=== PATIENT | male | born 1980 | race Caucasian/White ===

== ENCOUNTER 2021-02-17 09:29 | Inpatient (IN) | payer BC, SELFPAY ==
[2021-02-17] VITALS (31 sets, daily range): BP systolic 109–162; BP diastolic 80–116; PULSE 69–117; RESP 18–35; TEMP 36.7–37.2; O2SAT 94–100; BMI 50.0; BMI 48.1; BMI 48.2
--- NOTE | 2021-02-17 09:47 | EKG12_ITS ---
Test Reason : ABD EKG Blood Pressure : / mmHG Vent. Rate : 124 BPM Atrial Rate : 136 BPM P-R Int : 000 ms QRS Dur : 092 ms QT Int : 326 ms P-R-T Axes : 000 052 -14 degrees QTc Int : 468 ms Atrial fibrillation with rapid ventricular response Nonspecific ST abnormality Abnormal QRS-T angle, consider primary T wave abnormality Abnormal ECG Confirmed by BECKI MOSS, CHAKA ([id number]), electronic news gathering editor MARISOL REECE ([id number]) on 02/20/2021 2:52:41 PM Referred By: CHUCKIE Confirmed By:CORBY CONNELL MD
--- NOTE | 2021-02-17 09:49 | ED.VIS.GEN ---
History of Present Illness Chief Complaint: Shortness of Breath Informant: Patient, Family Onset: Month(s) Narrative: Sent in by PCP Dr. Malik, I spoke with him prior to patient arrival. Found to have A. fib with RVR in the office along with CHF clinical concerns. Patient reports chronic cough for 18 months, tobacco history. Nonproductive. Last 4 months noted orthopnea, last 2 days increased leg swelling. He denies feeling palpitations racing heart or any irregular heartbeat. Denies any diagnosis of COPD or asthma. He does snore at night for years per significant other has not been diagnosed with sleep apnea. Denies any current medications. No stroke history. Severe allergy to aspirin causing airway compromise. States he has been Covid tested couple times in the past have been negative, no vaccination started. Prior similar symptoms: No Past Medical History - Allergies and Home Meds Allergies/Adverse Reactions: Allergies aspirin Allergy (Verified 02/17/21 09:30) Shortness of breath Penicillins Allergy (Verified 02/17/21 09:30) Anaphylaxis Sulfa (Sulfonamide Antibiotics) Allergy (Verified 02/17/21 09:30) PT UNSURE OF REACTION Primary Care Physician: Ryan Sheridan MD [Primary Care Provider] - Past Medical History: - - No diagnosed past medical history Review of Systems General: Denies: Chills, Fever, Sweats Eyes: Denies: Visual changes - bilaterally, Diplopia ENT: Denies: Rhinorrhea, Sore throat Cardiovascular: Denies: Chest pain, Palpitations Respiratory: Reports: Dyspnea, Cough, Orthopnea. Denies: Dyspnea on exertion Gastrointestinal: Denies: Abdominal pain, Nausea, Vomiting, Diarrhea, Melena, Hematochezia Genitourinary: Denies: Dysuria, Hematuria, Frequency Musculoskeletal: Denies: Back pain, Extremity Pain Skin: Denies: Rash, Wounds Neurological: Denies: Headache, Weakness, Numbness Physical Exam Vital Signs/Narrative: Vital Signs Temp Pulse Resp BP Pulse Ox 02/17/21 09:31 98.9 F 70 18 162/116 H 97 Inital Vital Signs reviewed: Yes General: Well nourished, Well developed, Obese, No Acute Distress Head: Normocephalic, Atraumatic Eyes: Perrl, EOMI ENT: Moist mucous membranes, No rhinorrhea Neck: Supple, Nontender Cardiovascular: No murmurs, Irregular, Tachycardia Respiratory: No distress, Chest nontender, Diminished Abdomen: Soft, Nontender, Nondistended, Normal bowel sounds Back: Nontender, Normal Inspection Extremities: Nontender, Edema Skin: Normal color, No rash Neurological: Alert, Oriented x3, Cranial nerves II-XII grossly intact, Normal Strength, Normal Sensation Psychological: Normal affect, Normal Mood Diagnostic/Tx/Re-eval Chest X-Ray - ED: 1 View, Read by ED Physician, Read by Radiologist, No Acute Disease Clinical Impression(s) from Imaging Studies Chest X-Ray 02/17/21 10:45 IMPRESSION: Normal x-ray examination of the chest. Electronically Signed: Candido Kwok MD at 11:07 EDT , Service support , Abnormal Lab Results 02/17/21 02/17/21 02/17/21 10:15 10:15 10:15 WBC 12.0 H RBC 6.02 Hgb 15.5 Hct 49.1 MCV 81.6 MCH 25.7 L MCHC 31.6 L RDW Std Deviation 46.0 H RDW Coeff of Cecilia 15.7 H Plt Count 268 MPV 9.8 Immature Gran % (Auto) 0.300 Neut % (Auto) 80.1 H Lymph % (Auto) 11.5 L [place] % (Auto) 7.0 Eos % (Auto) 0.7 Baso % (Auto) 0.4 Absolute Neuts (auto) 9.6 H Absolute Lymphs (auto) 1.38 Nucleated RBC % 0 PT 14.0 INR 1.1 APTT 28.4 Sodium 138 Potassium 3.9 Chloride 106 Carbon Dioxide 27.0 Anion Gap 5 BUN 17 Creatinine 1.11 Estim Creat Clear Calc 90.43 Est GFR (MDRD) Af Amer 93 Est GFR (MDRD) Non-Af 77 BUN/Creatinine Ratio 15.3 Glucose 94 Calcium 9.0 Troponin I 0.018 B-Natriuretic Peptide 02/17/21 10:15 WBC RBC Hgb Hct MCV MCH MCHC RDW Std Deviation RDW Coeff of Cecilia Plt Count MPV Immature Gran % (Auto) Neut % (Auto) Lymph % (Auto) [place] % (Auto) Eos % (Auto) Baso % (Auto) Absolute Neuts (auto) Absolute Lymphs (auto) Nucleated RBC % PT INR APTT Sodium Potassium Chloride Carbon Dioxide Anion Gap BUN Creatinine Estim Creat Clear Calc Est GFR (MDRD) Af Amer Est GFR (MDRD) Non-Af BUN/Creatinine Ratio Glucose Calcium Troponin I B-Natriuretic Peptide 245.6 H - EKG Initial EKG Interpretation: Atrial Fibrillation - A. fib with RVR rate of 124, no ST changes, T wave inversions on 3 and aVL. - Medical Decision Making Patient EKG A. fib with RVR systolic blood pressure 160s. Pulse ox low 90s to mid 90s. Given Lopressor IV x3 heart rate down to the 90s to 110s fluctuating. He states respiratory symptoms with no significant improvement. Chest x-ray 1 view reviewed by myself and read by radiology with no acute findings. BNP at 250. Clinical signs and concerns for CHF. Is given 20 of IV Lasix. Given 50 oral metoprolol to sustain his heart rate. With respiratory symptoms Covid testing obtained and negative. CBC BMP normal. Troponin in the negative range. Patient denies feeling abnormal irregular heartbeat. Suspect underlying sleep apnea history, patient with a [id number] score of 1. Patient with severe allergy to aspirin. I discussed with hospitalist Dr. Quinones for admission and inpatient management. ED Disposition - Plan for ED Patient: Disposition: Acute Care Hospital [facility] Diagnosis: Atrial fibrillation with RVR, CHF (congestive heart failure) Referrals: Ryan Sheridan MD [Primary Care Provider] -
[2021-02-17] MEDS: Metoprolol Tartrate 5 MG/5 ML Vial IV ×3 (10:16→11:00)
[2021-02-17 10:26] LABS: Absolute Lymphocyte Count 1.38 X10^3/uL (0.83-4.51); Absolute Neutrophil Count 9.6 X10^3/uL (2.0-7.7); Basophil# 0.05 X10^3/uL; Basophil% 0.4 % (0-1); Eosinophil# 0.08 X10^3/uL; Eosinophils% 0.7 % (0-5); Hematocrit 49.1 % (40-54); Hemoglobin 15.5 g/dL (13.0-16.5); Lymphocyte # 1.38 X10^3/ul (4.0); Lymphocyte % 11.5 % (19-41); Mean Corp Hgb Conc 31.6 g/dL (32-36); Mean Corpuscular Hgb 25.7 pg (27.0-32.0); Mean Corpuscular Volume 81.6 fL (80-94); Mean Platelet Vol. 9.8 fl (6.2-12.0); Monocyte# 0.84 X10^3/uL; NRBC Flagged by Analyzer 0 % (0-5); Neutrophil % 80.1 % (47-70); Platelet Count 268 K/mm3 (150-450); RBC Distribution Width CV 15.7 % (11.6-14.6); Red Blood Count 6.02 M/mm3 (4.6-6.2)
[2021-02-17 10:36] LABS: International Normalized Ratio 1.1
[2021-02-17 10:37] LABS: Partial Thromboplast Time 28.4 Seconds (24.1-36.2)
--- NOTE | 2021-02-17 10:45 | RAD_ITS ---
STUDY: X-RAY CHEST REASON FOR EXAM: Male, 40 years old. Sob with exertion. Abnormal EKG today. TECHNIQUE: 2 AP portable views COMPARISON: None. FINDINGS: EKG leads overlie the chest The lungs are clear and expanded. There is no demonstrated pleural abnormality. Normal size heart. Normal mediastinum and pj. Normal visualized pulmonary arteries. Normal visualized aortic arch and descending thoracic aorta. Normal visualized thoracic spine. Normal visualized ribs, clavicles, and shoulders. There is no demonstrated abnormality of the visualized soft tissue structures of the upper abdomen. RAD/Chest 1 View (Portable) IMPRESSION: Normal x-ray examination of the chest. Electronically Signed: Candido Kwok MD at 11:07 EDT , Service support ,
[2021-02-17 10:48] LABS: Anion Gap 5 (5-15); BUN 17 mg/dL (7-18); BUN/Creat Ratio 15.3 RATIO (10-20); Chloride 106 mmol/L (98-107); Creatinine, Serum 1.11 mg/dL (0.70-1.30); EST Glomerular Filtration Rate 77 mL/min (>60); Est Glom Filt Rate - Afr Amer 93 mL/min (>60); Estimated Creatinine Clearance 90.43 ml/min; Glucose 94 mg/dL (74-106); Potassium 3.9 mmol/L (3.5-5.1); Sodium Level 138 mmol/L (136-145)
[2021-02-17 10:49] LABS: BNP,B-Type NATRIURETIC PEPTIDE 245.6 pg/mL (0-100)
[2021-02-17] MEDS: Metoprolol Tartrate 25 MG Tablet 50 MG PO (11:19)
[2021-02-17] MEDS: Furosemide 40 MG/4 ML Vial 20 MG IV (11:19)
--- NOTE | 2021-02-17 11:24 | HP.PCM_ITS ---
History of Present Illness Date of Admission: 02/17/21 Chief Complaint: shortness of breath The patient is a 40 year old M h no significant PMH. He was admitted from his PCP;s office with a complaint of afib with RVR and cncerns for heart failure. He started having leg swelling over the last 2 days, and had also been having difficulty sleeping flat for the past few months. He had also had a chronic cough for the last 18 months. He has allergies to aspirin. His heart rate was in the 120s, so he went to see his PCP today and was sent in to the ED. He hasnt had such symptoms in the past. He has never been diagnosed with heart failure or A. fib. Review of systems otherwise negative. Vitals in the ED showed pulse rate of 104 with respiratory rate of 25 and blood pressure of 143/110. Temperature was 98.2 Fahrenheit. Chemistry was unremarkable with initial troponin of 0.018 and BNP of 245.6. CBC showed WBC of 12 and hemoglobin of 15.5 was otherwise unremarkable. Chest x-ray showed no acute cardiopulmonary process and EKG showed A. fib with RVR. He has been admitted to be managed for new ons et A. fib with RVR and probable heart failure. Past Medical History Past Medical History (Chronic Problems): Chronic Problems HTN (hypertension) (Chronic) Allergies aspirin Allergy (Verified 02/17/21 09:30) Shortness of breath Penicillins Allergy (Verified 02/17/21 09:30) Anaphylaxis Sulfa (Sulfonamide Antibiotics) Allergy (Verified 02/17/21 09:30) PT UNSURE OF REACTION Smoking Status: Current some day smoker Tobacco Use: Cigarettes VTE Information - Inpt Only VTE Present on Admission: No VTE Pharm Prophylaxis ordered?: Yes Patient Problems: Active and Suspected Problems Atrial fibrillation with RVR (Acute) CHF (congestive heart failure) (Acute) - Physical Exam Vitals/I&O's: Vital Signs Temp Pulse Resp BP Pulse Ox 98.9 F 70 18 162/116 H 97 02/17/21 09:31 02/17/21 09:31 02/17/21 09:31 02/17/21 09:31 02/17/21 09:31 Oxygen Delivery Method Room Air Weight: 348 lb 12.34 oz Body Mass Index (BMI) 50.0 General: Alert, Oriented x3, Cooperative, No apparent distress, - - Super morbid obesity HEENT: Atraumatic, PERRLA, EOMI, Normocephalic Oral: Dry Mucosa Neck: Supple, No JVD, Negative Carotid Bruits Lungs: Diminished - diminished breath sounds bibasally, no wheezes or crackles. Cardiovascular: Irregular Rate - afib with RVR Abdomen: Bowel Sounds Present, Soft, Non Tender, Obese Extremities: No edema, Capillary Refill Less than 3 Seconds Skin: No rashes, No breakdown Musculoskeletal: No Tenderness to Palpation of Joints or Extremities Lymphatic: No Cervical, Supraclavicular, or Inguinal Adenopathy Neurological: Cranial nerves II-XII grossly intact, Neuro grossly intact, Motor Exam 5/5 strength throughout Psych/Mental Status: Normal Affect, Appropriate, Alert and oriented to time, place, person, mood and affect Microbiology Past 72 Hours 02/17/21 10:13 Mucosa - Nose SARS-CoV-2 Antigen (Rapid) - Final Laboratory Results 02/17/21 10:15: WBC 12.0 H, RBC 6.02, Hgb 15.5, Hct 49.1, MCV 81.6, MCH 25.7 L, MCHC 31.6 L, RDW Std Deviation 46.0 H, RDW Coeff of Cecilia 15.7 H, Plt Count 268, MPV 9.8, Immature Gran % (Auto) 0.300, Neut % (Auto) 80.1 H, Lymph % (Auto) 11.5 L, [place] % (Auto) 7.0, Eos % (Auto) 0.7, Baso % (Auto) 0.4, Absolute Neuts (auto) 9.6 H, Absolute Lymphs (auto) 1.38, Nucleated RBC % 0 02/17/21 10:15: PT 14.0, INR 1.1, APTT 28.4 02/17/21 10:15: Sodium 138, Potassium 3.9, Chloride 106, Carbon Dioxide 27.0, Anion Gap 5, BUN 17, Creatinine 1.11, Estim Creat Clear Calc 90.43, Est GFR (MDRD) Af Amer 93, Est GFR (MDRD) Non-Af 77, BUN/Creatinine Ratio 15.3, Glucose 94, Calcium 9.0, Troponin I 0.018 02/17/21 10:15: B-Natriuretic Peptide 245.6 H Diagnostic Data Chest X-Ray 02/17/21 10:45 IMPRESSION: Normal x-ray examination of the chest. Electronically Signed: Candido Kwok MD at 11:07 EDT , Service support , Assessment/Plan All Active Problems Atrial fibrillation with RVR (Acute) CHF (congestive heart failure) (Acute) 40 y/o admitted with a complaint of afib with RVR and shortness of breath #Afib with RVR * Have any history of A. fib with RVR. I do suspect that this might be due to ELLA as he has a history of snoring and sees she has apneic periods at night. * Heart rate was low 130s at time of review. Start Cardizem drip after giving Cardizem bolus * 2D echo ordered. Will check TSH. Consult cardiology. * Start on therapeutic Lovenox. * #Heart Failure of unknown EF * BNP was 245.6 which may be falsely low on account of his significant obesity. * Will start patient on IV Lasix 40 mg twice daily. Monitor intake and output. * 2D echo ordered. * #Probable obstructive sleep apnea * Patient has a history of snoring at night and apneic episodes. This is likely contributing to his A. fib with RVR. * Will get pulmonology to review patient before discharge so he can be followed up on outpatient basis for sleep test to unable diagnosis of sleep apnea. * DVT prophylaxis: Not indicated as he is on therapeutic Lovenox CODE STATUS: Full code * Patient counseled extensively about different types of CODE STATUS including full code, DNR CCA and DNR CCA. Patient elects to be full code. * Total fdir-iv-qder time 17 minutes. Inpatient E&M: 54699 Init Hosp L3 Procedures: 18833 Advncd Care Plan 30 Min
--- NOTE | 2021-02-17 12:18 | ECHOCS_ITS ---
Reason For Study: New Afib Procedure This was a 2D Doppler, Color Flow transthoracic echocardiogram. The study was technically difficult. Contrast injection was performed. Patient was unable to lay on left side due to a large increase of SOB. Exam performed portable in patient room. Left Ventricle Moderately dilated left ventricle. Moderate concentric left ventricular hypertrophy. Severe global left ventricular systolic dysfunction. The estimated ejection fraction is 20 %. Unable to assess diastolic dysfunction. Right Ventricle Based upon the 2D echocardiographic images obtained there is grossly normal right ventricular size and systolic function. Atria The left atrium is moderately enlarged. The right atrium is not well visualized. No doppler evidence for ASD. Mitral Valve There is no mitral annular calcification. Mild papillary muscle dysfunction of the mitral valve. Mild (1+) eccentric mitral valve insufficiency. Tricuspid Valve The tricuspid valve is not well visualized. Mild tricuspid valve insufficiency. Right ventricular systolic pressure estimated to be 36 mmHg. Aortic Valve Trisinus/trileaflet aortic valve. Normal aortic valve. Pulmonic Valve The pulmonic valve is not well visualized. Trivial pulmonic valve insufficiency. Great Vessels The aortic root is not well visualized. Pericardium/Pleural No pericardial effusion. Medication Diluted definity 4ml given slow IV push to enhance endocardial definition. MMode/2D Measurements & Calculations LVIDd: 6.1 cm IVSd: 1.7 cm LA dimension: 5.7 cm LVIDs: 5.3 cm LVPWd: 1.4 cm FS: 14.2 % LAV(MOD-bp): 96.0 ml LA A4 area: 30.2 cm2 LAV(MOD-bp) Indexed: 36.5 ml/m2 LAV(MOD-sp2): 85.1 ml LAV(MOD-sp4): 99.8 ml Doppler Measurements & Calculations MV E max farhan: 98.9 cm/sec Ao V2 max: 97.0 cm/sec LV V1 max: 74.2 cm/sec Ao max P.9 mmHg LV V1 max P.4 mmHg PA V2 max: 62.7 cm/sec TR max farhan: 285.1 cm/sec TR max P.5 mmHg ECHO/Echo Complete W/ Contrast Interpretation Summary The study was technically difficult. Contrast injection was performed. Moderately dilated left ventricle. Severe global left ventricular systolic dysfunction. The estimated ejection fraction is 20 %. Moderate concentric left ventricular hypertrophy. The left atrium is moderately enlarged. Mild papillary muscle dysfunction of the mitral valve. Mild (1+) eccentric mitral valve insufficiency. Mild tricuspid valve insufficiency. Trivial pulmonic valve insufficiency. Right ventricular systolic pressure estimated to be 36 mmHg. Unable to assess diastolic dysfunction. Ordering Physician: Bella Quinones Referring Physician: Ryan Sheridan Performed By: Leroy Shabazz RCS
[2021-02-17 13:13] LABS: Thyroid Stim Hormone (TSH) 2.13 uIU/mL (0.358-3.74)
--- NOTE | 2021-02-17 13:13 | NURSING ---
Report given to Keren NOLEN who is taking over care of pt at this time.
[2021-02-17] MEDS: 0.9% Saline Lock 10 ML Syringe IV ×2 (13:19→17:08)
[2021-02-17] MEDS: dilTIAZem 25 MG/5 ML Vial IV BOLUS (13:19)
--- NOTE | 2021-02-17 14:42 | PCM.CONS.C ---
Problem List (1) Atrial fibrillation with RVR Status: Acute (2) CHF (congestive heart failure) Status: Acute (3) HTN (hypertension) Status: Chronic Reason for Consult Date of Consultation: 02/17/21 History of Present Illness: The patient is a 40 year [id number] white male who claims to have no past medical history and has been on no prescription medications who presents for evaluation of atrial fibrillation, CHF (unspecified), and hypertension. According to the patient and his spouse he has had a cough for approximately the last 18 months. The patient spouse states that he has been tested for COVID-19 three times during this time all of which have been negative. He has been progressively short of breath and dyspneic initially with activity but more recently with rest as well. He has also recently developed symptoms compatible with orthopnea/PND. Over approximately the last 3 days he has developed bilateral lower extremity calf/ankle/pedal edema. He also notes as his job has changed over time that he has gained approximately 50 pounds of weight. He has denied any ongoing chest discomfort and he has not sensed any palpitations or rapid heart rates nor is he had any near-syncope or syncope. His states that she believes he has ELLA. Based upon his ongoing symptoms she encouraged him to present to his primary care physician's office for further evaluation. Of note, the patient's spouse states that the patient has not been evaluated by physician in approximately 9 years. He was evaluated and was subsequently told to go directly to the emergency department for further evaluation and care. In the emergency department he was evaluated and noted to have atrial fibrillation and her findings concerning for CHF. He was treated with IV diltiazem to assist with his rate control and also treated with IV diuretics. He was placed in the PCU for further evaluation and care. [] Past Medical History Allergies/Adverse Reactions: Allergies aspirin Allergy (Verified 02/17/21 09:30) Shortness of breath Penicillins Allergy (Verified 02/17/21 09:30) Anaphylaxis Sulfa (Sulfonamide Antibiotics) Allergy (Verified 02/17/21 09:30) PT UNSURE OF REACTION Past Medical History (Chronic Problems): Chronic Problems HTN (hypertension) (Chronic) Lives: Spouse/ Significant Other Smoking Status: Current some day smoker Tobacco Use: Cigarettes Alcohol: None Drugs: None Review of Systems - Review of Systems General: Reports: Fatigue. Denies: Fever, Night Sweats Cardiovascular: Reports: Shortness of Breath, Shortness of Breath at Rest, Shortness of Breath with Exertion, Orthopnea, PND, Peripheral Edema. Denies: Chest Discomfort, Palpitations, Lightheadedness, Dizziness, Near Syncope, Syncope Respiratory: Reports: Cough, Shortness of Breath. Denies: Sputum Production, Hemoptysis Gastrointestinal: Denies: Hematemesis, Hematochezia, Melena Genitourinary: Denies: Dysuria, Hematuria Skin: Denies: Rash Subjectve: This is a 40-year-old white male who appears to be resting comfortably at the moment in no acute distress. Objective: Vital Signs Temp Pulse Resp BP Pulse Ox 98.1 F 84 35 H 127/104 H 97 02/17/21 13:00 02/17/21 14:15 02/17/21 14:15 02/17/21 14:15 02/17/21 14:15 Oxygen Delivery Method Room Air Weight: 345 lb 3.902 oz Body Mass Index (BMI) 48.1 Intake and Output for Last 24 Hours 02/15/21 02/16/21 02/17/21 23:59 23:59 23:59 Intake Total 4.08 / 4.08 Balance 4.08 / 4.08 General: Awake, Alert, Oriented x 3, Cooperative, No Acute Distress, Obese HEENT: Atraumatic, Normocephalic, PERRL, EOMI, Sclera Non Icteric Neck: Supple, Good ROM, No JVD Lungs: Diminished Buck Bases Cardiovascular: Irregular Rhythm, Normal S1, Normal S2 Vascular: No Carotid Bruits Abdomen: Bowel Sounds Present, Soft, Non Tender, Obese Extremities: Moderate RLE Edema, Moderate LLE Edema Neurological: No Focal Motor or Sensory Deficit Psych/Mental Status: Appropriate 02/17/21 10:15: WBC 12.0 H, RBC 6.02, Hgb 15.5, Hct 49.1, MCV 81.6, MCH 25.7 L, MCHC 31.6 L, Plt Count 268, MPV 9.8, Immature Gran % (Auto) 0.300, Neut % (Auto) 80.1 H, Lymph % (Auto) 11.5 L, [place] % (Auto) 7.0, Eos % (Auto) 0.7, Baso % (Auto) 0.4, Absolute Neuts (auto) 9.6 H, Nucleated RBC % 0 02/17/21 10:15: PT 14.0, INR 1.1, APTT 28.4 02/17/21 10:15: Sodium 138, Potassium 3.9, Chloride 106, Carbon Dioxide 27.0, Anion Gap 5, BUN 17, Creatinine 1.11, Est GFR (MDRD) Af Amer 93, Est GFR (MDRD) Non-Af 77, BUN/Creatinine Ratio 15.3, Glucose 94, Calcium 9.0, Troponin I 0.018 02/17/21 10:15: B-Natriuretic Peptide 245.6 H 02/17/21 13:00: Troponin I 0.015 Rhythm: Atrial fibrillation EKG: Atrial fibrillation; poor R wave progression; nonspecific ST/T wave abnormality ECHO: Pending CXR: Portable: Preliminary evaluation: Question increased pulmonary vascularity; question increased cardiac silhouette size. Please see official report Assessment/Plan 1. Atrial fibrillation The patient presents with atrial fibrillation. The duration is uncertain. The etiology is uncertain at this time. He has been treated with rate control therapy. He is being placed on anticoagulant therapy. He is undergoing additional cardiovascular evaluation with cardiac enzymes and ECG. An echocardiogram is pending. 2. CHF-unspecified He does have symptoms and objective findings concerning for CHF. It is unclear at this time whether this would be systolic or diastolic/used ejection fraction versus preserved ejection fraction in etiology. An echocardiogram is pending to assist in the evaluation of the patient. In the meantime the patient will need to continue to be monitored. He is continuing medical therapy with IV diuretics. Hopefully his medical therapy will assist in stabilizing the patient as he states he cannot be supine at this time and breathe comfortably for any length of time. Thus he is remained somewhat more upright. 3. Hypertension The patient's blood pressure is elevated. He appears to be unaware of any diagnosis of hypertension. It is unclear whether this would be a contributing factor to his other symptoms and objective findings versus being secondary to such. At the moment he will need to continue medical management. Overall, at the present time, he will need to continue to be monitored, continue with his noninvasive evaluation, and continue with medical therapy. Depending upon his clinical course he may need further cardiac versus noncardiac evaluation. Comment: The patient's case was discussed and reviewed with the patient and his spouse. This note was generated using a voice recognition system and there may be incorrect words, spelling or punctuation that were not noted when reviewing the office note prior to saving.
--- NOTE | 2021-02-17 15:10 | CASEMGMT ---
According to [place] website, the following are in-network tertiary facilities: [facility], [place], [facility], [facility], [facility], [facility], [facility], and . Onel NOLEN CM
[2021-02-17 15:40] LABS: AST(SGOT) 22 U/L (15-37); Alanine Aminotransfer ALT/SGPT 38 U/L (16-61); Alkaline Phosphatase 109 U/L (45-117); Bilirubin, Direct 0.45 mg/dL (0.00-0.30); Globulin 3.6 g/dL (2.2-4.2); Protein, Total 7.6 g/dL (6.4-8.2)
[2021-02-17] MEDS: Furosemide 40 MG/4 ML Vial IV (17:08)
[2021-02-17] MEDS: Lisinopril 10 MG Tablet PO (21:13)
[2021-02-17] MEDS: Enoxaparin 80 MG/0.8 ML Syringe 160 MG SC (21:14)
[2021-02-18] VITALS (32 sets, daily range): BP systolic 103–155; BP diastolic 72–131; PULSE 78–104; RESP 18–36; TEMP 36.1–36.7; O2SAT 92–100
[2021-02-18 05:47] LABS: Absolute Lymphocyte Count 1.43 X10^3/uL (0.83-4.51); Absolute Neutrophil Count 8.9 X10^3/uL (2.0-7.7); Basophil# 0.06 X10^3/uL; Basophil% 0.5 % (0-1); Eosinophils% 0.9 % (0-5); Hematocrit 48.2 % (40-54); Hemoglobin 14.9 g/dL (13.0-16.5); Lymphocyte # 1.43 X10^3/ul (4.0); Lymphocyte % 12.6 % (19-41); Mean Corp Hgb Conc 30.9 g/dL (32-36); Mean Corpuscular Hgb 25.6 pg (27.0-32.0); Mean Corpuscular Volume 82.8 fL (80-94); Monocyte# 0.87 X10^3/uL; Monocyte% 7.6 % (0-10); NRBC Flagged by Analyzer 0 % (0-5); Neutrophil # 8.89 X10^3/uL (2.7-7.7); Platelet Count 261 K/mm3 (150-450); RBC Distribution Width CV 16.1 % (11.6-14.6); Red Blood Count 5.82 M/mm3 (4.6-6.2); White Blood Count 11.4 K/mm3 (4.4-11.0)
[2021-02-18 06:09] LABS: Anion Gap 5 (5-15); BUN 14 mg/dL (7-18); BUN/Creat Ratio 13.5 RATIO (10-20); Chloride 105 mmol/L (98-107); Cholesterol 148 mg/dL (200); Creatinine, Serum 1.04 mg/dL (0.70-1.30); EST Glomerular Filtration Rate 83 mL/min (>60); Est Glom Filt Rate - Afr Amer 101 mL/min (>60); Estimated Creatinine Clearance 99.56 ml/min; Glucose 90 mg/dL (74-106); High Density Lipoprotein 27 mg/dL; Potassium 3.9 mmol/L (3.5-5.1); Sodium Level 140 mmol/L (136-145); Triglycerides 99 mg/dL; Very Low Density Lipoprotein 20 mg/dL (5-40)
[2021-02-18] MEDS: Lisinopril 10 MG Tablet PO ×2 (09:34→21:50)
[2021-02-18] MEDS: Enoxaparin 80 MG/0.8 ML Syringe 160 MG SC ×2 (09:34→21:52)
[2021-02-18] MEDS: Furosemide 40 MG/4 ML Vial IV ×2 (09:35→17:35)
[2021-02-18] MEDS: 0.9% Saline Lock 10 ML Syringe IV ×2 (09:35→17:35)
--- NOTE | 2021-02-18 11:05 | PN_ITS ---
Patient Problems: Active and Suspected Problems Atrial fibrillation with RVR (Acute) CHF (congestive heart failure) (Acute) Subjective: Patient seen and examined. He is feeling much better today. He denies any chest pain or palpitations or dizziness, nausea vomiting. He remains in A. fib and remains on a Cardizem drip. Billing Customer Service Representative on board. He still does remain tachypneic. He is on 2 L of oxygen. Vitals/I&O's: Vital Signs Temp Pulse Resp BP Pulse Ox 97 F L 87 26 H 155/85 H 94 02/18/21 08:00 02/18/21 10:00 02/18/21 10:00 02/18/21 10:00 02/18/21 10:00 Oxygen Flow Rate (L/min) 2 Oxygen Delivery Method Room Air Weight: 337 lb 4.916 oz Body Mass Index (BMI) 48.1 Intake and Output for Last 24 Hours 02/16/21 02/17/21 02/18/21 23:59 23:59 23:59 Intake Total 525.58 / 525.58 197.25 / 197.25 Output Total 4300 / 4300 600 / 600 Balance -3774.42 / -3774.42 -402.75 / -402.75 General: Alert, Oriented x3, Cooperative, No apparent distress, - - Super morbid obesity HEENT: Atraumatic, PERRLA, EOMI, Normocephalic Oral: Dry Mucosa Neck: Supple, No JVD, Negative Carotid Bruits Lungs: Diminished - diminished breath sounds bibasally, no wheezes or crackles. Cardiovascular: Irregular Rate - afib, rate controlled. Abdomen: Bowel Sounds Present, Soft, Non Tender, Obese Extremities: No edema, Capillary Refill Less than 3 Seconds Skin: No rashes, No breakdown Musculoskeletal: No Tenderness to Palpation of Joints or Extremities Lymphatic: No Cervical, Supraclavicular, or Inguinal Adenopathy Neurological: Cranial nerves II-XII grossly intact, Neuro grossly intact, Motor Exam 5/5 strength throughout Psych/Mental Status: Normal Affect, Appropriate, Alert and oriented to time, place, person, mood and affect Microbiology Past 72 Hours 02/17/21 10:13 Mucosa - Nose SARS-CoV-2 Antigen (Rapid) - Final Laboratory Results 02/17/21 10:15: TSH 2.13 02/17/21 13:00: Troponin I 0.015 02/17/21 13:00: Total Bilirubin 1.40 H, Direct Bilirubin 0.45 H, AST 22, ALT 38, Alkaline Phosphatase 109, Total Protein 7.6, Albumin 4.0, Globulin 3.6 02/17/21 16:20: Troponin I 0.015 02/18/21 05:24: WBC 11.4 H, RBC 5.82, Hgb 14.9, Hct 48.2, MCV 82.8, MCH 25.6 L, MCHC 30.9 L, RDW Std Deviation 48.0 H, RDW Coeff of Cecilia 16.1 H, Plt Count 261, MPV 10.0, Immature Gran % (Auto) 0.400, Neut % (Auto) 78.0 H, Lymph % (Auto) 12.6 L, [place] % (Auto) 7.6, Eos % (Auto) 0.9, Baso % (Auto) 0.5, Absolute Neuts (auto) 8.9 H, Absolute Lymphs (auto) 1.43, Nucleated RBC % 0 02/18/21 05:24: Sodium 140, Potassium 3.9, Chloride 105, Carbon Dioxide 30.0, Anion Gap 5, BUN 14, Creatinine 1.04, Estim Creat Clear Calc 99.56, Est GFR (MDRD) Af Amer 101, Est GFR (MDRD) Non-Af 83, BUN/Creatinine Ratio 13.5, Glucose 90, Calcium 9.0, Triglycerides 99, Cholesterol 148, LDL Cholesterol 101, VLDL Cholesterol 20, HDL Cholesterol 27 L Current Medications Acetaminophen (Acetaminophen 325 Mg Tablet) 650 mg PO Q6H PRN PRN PRN Reason: Pain Score 1-3 /Temp>100.7 Enoxaparin Sodium (Enoxaparin 80 Mg/0.8 Ml Syringe) 160 mg SC Q12 [facility] Last Admin: 02/18/21 09:34 Dose: 160 mg Documented by: Furosemide (Furosemide 40 Mg/4 Ml Vial) 40 mg IV BID@1000,1800 STEPHANE Last Admin: 02/18/21 09:35 Dose: 40 mg Documented by: Diltiazem HCl 125 mg/ Dextrose 125 mls @ 5 mls/hr IV .Q25H STEPHANE; Protocol Last Titration: 02/18/21 10:00 Dose: 10 mg/hr, 10 mls/hr Documented by: Sodium Chloride () 250 mls @ 15 mls/hr IV .[id number] PRN PRN Reason: Saline Flush Sodium Chloride () 250 mls @ 15 mls/hr IV .[id number] PRN PRN Reason: Additional IVPB Infusion Lisinopril (Lisinopril 10 Mg Tablet) 10 mg PO BID STEPHANE Last Admin: 02/18/21 09:34 Dose: 10 mg Documented by: Nitroglycerin (Nitroglycerin (Inpatient Use) 0.4 Mg Tab.Subl) 0.4 mg SL Q5M PRN PRN Reason: CARDIAC/CHEST PAIN Ondansetron HCl (Ondansetron 4 Mg/2 Ml Vial) 4 mg IV Q8H PRN PRN PRN Reason: NAUSEA/VOMITING Sodium Chloride (0.9% Saline Lock 10 Ml Syringe) 10 - 40 ml IV UD PRN PRN Reason: SALINE FLUSH Last Admin: 02/18/21 09:35 Dose: 10 ml Documented by: STROKE Vital Signs/Narrative: Vital Signs Temp Pulse Resp BP Pulse Ox 02/18/21 10:00 87 26 H 155/85 H 94 02/18/21 09:00 88 28 H 136/90 H 98 02/18/21 08:00 97 F L 89 23 H 137/110 H 98 02/18/21 07:12 100 97 Medical Necessity - Tobacco Use Smoking Status: Current some day smoker Tobacco Use: Cigarettes Assessment/Plan All Active Problems Atrial fibrillation with RVR (Acute) CHF (congestive heart failure) (Acute) 40 y/o admitted with a complaint of afib with RVR and shortness of breath #Afib with RVR * remains on cardizem drip * still in afib, though rate controlled on cardizem drip * to titrate cardizem drip off as tolerated * TSh was WNL * 2D echo showsEF of 20%, with moderately dilated LV, and moderate concentric left ventricular hypertrophy with moderately enlarged left atrium and RVSP estimated to be 36 mmHg. Unable to assess diastolic dysfunction. * Cardiology on board. On therapeutic Lovenox. * Await further cardiology recommendations. * * #Acute HFrEF * echo findings as above. * on IV lasix 40mg bid * monitor intake and output * fluid restriction to 1500cc daily * #Probable obstructive sleep apnea * Patient has a history of snoring at night and apneic episodes. This is likely contributing to his A. fib with RVR. * consult pulmonology so he can be followed up soon on outpatient basis. * * * DVT prophylaxis: Not indicated as he is on therapeutic Lovenox CODE STATUS: Full code * Inpatient E&M: 88524 Subs Hosp L3
--- NOTE | 2021-02-18 11:16 | CASEMGMT ---
CALLUM NEIL assessment: Face to Face with patient for initial transition planning/care coordination assessment. RN JOLYNN introduced self and role at [facility], pt voices understanding and consents to assessment. Pt is sitting up in bed in no distress. Pt is A/Ox4 and answers all questions appropriately. Pt's is at bedside during assessment. Care providers, pharmacy, and demographics verified. Presentation: Pt w/ progressive SOB worse w/ exertion x couple weeks. Sent by MD for abnormal EKG Admitting dx: Afib RVR PCP: Fatimah Specialists: Pt states no current specialists [facility]erred [facility]: [facility] Insurance: [place] Prescription Benefit: [place] Living Will/HPOA: Pt states does not have LW/HPOA but would like to complete AD's at this time. Wade VERONICA aware, voices understanding. LNOK: Alice Lay, ; Robinson Lay, father Living Arrangements: Pt states lives with in mobile home with 4 steps in and states no concerns at home. Pt states is independent with ADL's. Transportation: Pt states drives self and states no transportation concerns. DME/HHC: Pt states no current DME or need for any. Pt states no hx of HHC or SNF in the past. Pt states no concerns with going home at time of discharge. 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 Pt states smokes about a pack of cigarettes weekly and does not drink ETOH. Pt states no further concerns/needs. CM to follow for any further discharge planning/needs. Advised pt to ask for CM if any further questions/concerns/needs arise, voices understanding. Pt Goal: Home Plan: [place] CALLUM NEIL
--- NOTE | 2021-02-18 20:53 | PN.CARD_ITS ---
Subjectve: The patient states he feels better today with respect to his cough, his breathing, and his lower extremity edema. Objective: Vital Signs Temp Pulse Resp BP Pulse Ox 97.7 F L 86 18 141/92 H 97 02/18/21 20:00 02/18/21 20:00 02/18/21 20:00 02/18/21 20:00 02/18/21 20:00 Oxygen Flow Rate (L/min) 2 Oxygen Delivery Method Nasal Cannula Weight: 337 lb 4.916 oz Body Mass Index (BMI) 48.1 Intake and Output for Last 24 Hours 02/16/21 02/17/21 02/18/21 23:59 23:59 23:59 Intake Total 525.58 / 525.58 1256.58 / 1256.58 Output Total 4300 / 4300 3600 / 3600 Balance -3774.42 / -3774.42 -2343.42 / -2343.42 General: Awake, Alert, Oriented x 3, Cooperative, No Acute Distress, Obese HEENT: Atraumatic, Normocephalic, PERRL, EOMI, Sclera Non Icteric Neck: Supple, Good ROM, No JVD Lungs: Clear to auscultation Cardiovascular: Irregular Rhythm, Normal S1, Normal S2 Vascular: No Carotid Bruits Abdomen: Bowel Sounds Present, Soft, Obese Extremities: Mild RLE Edema, Mild LLE Edema Neurological: No Focal Motor or Sensory Deficit Psych/Mental Status: Appropriate 02/18/21 05:24: WBC 11.4 H, RBC 5.82, Hgb 14.9, Hct 48.2, MCV 82.8, MCH 25.6 L, MCHC 30.9 L, Plt Count 261, MPV 10.0, Immature Gran % (Auto) 0.400, Neut % (Auto) 78.0 H, Lymph % (Auto) 12.6 L, [place] % (Auto) 7.6, Eos % (Auto) 0.9, Baso % (Auto) 0.5, Absolute Neuts (auto) 8.9 H, Nucleated RBC % 0 02/18/21 05:24: Sodium 140, Potassium 3.9, Chloride 105, Carbon Dioxide 30.0, Anion Gap 5, BUN 14, Creatinine 1.04, Est GFR (MDRD) Af Amer 101, Est GFR (MDRD) Non-Af 83, BUN/Creatinine Ratio 13.5, Glucose 90, Calcium 9.0, Triglycerides 99, Cholesterol 148, LDL Cholesterol 101, VLDL Cholesterol 20, HDL Cholesterol 27 L Rhythm: Atrial fibrillation Echocardiogram: Interpretation Summary The study was technically difficult. Contrast injection was performed. Moderately dilated left ventricle. Severe global left ventricular systolic dysfunction. The estimated ejection fraction is 20 %. Moderate concentric left ventricular hypertrophy. The left atrium is moderately enlarged. Mild papillary muscle dysfunction of the mitral valve. Mild (1+) eccentric mitral valve insufficiency. Mild tricuspid valve insufficiency. Trivial pulmonic valve insufficiency. Right ventricular systolic pressure estimated to be 36 mmHg. Unable to assess diastolic dysfunction. Medical Necessity - Tobacco Use Smoking Status: Current some day smoker Tobacco Use: Cigarettes Assessment/Plan 1. Atrial fibrillation The patient presents with atrial fibrillation. The duration is uncertain. The etiology is uncertain at this time. He has been treated with rate control therapy. He is being placed on anticoagulant therapy. Has undergone further evaluation with a transthoracic echocardiogram. Based upon the study his left ventricle appeared to be dilated with diminished LV systolic function/LVEF of approximately 20%. 2. CHF-unspecified He does have symptoms and objective findings concerning for CHF. It is unclear at this time whether this would be systolic or diastolic/used ejection fraction versus preserved ejection fraction in etiology. Echocardiogram has been performed as noted. He has been treated medically. He has had symptomatic improvement as well as improvement on his examination. Based upon his clinical course it has been recommended that he undergo further evaluation with diagnostic cardiac catheterization for the possibility of underlying CAD to assist with ongoing evaluation and care. The procedure and risk were discussed with him. He was agreeable to this approach. 3. Hypertension The patient's blood pressure is elevated. He appears to be unaware of any diagnosis of hypertension. It is unclear whether this would be a contributing factor to his other symptoms and objective findings versus being secondary to such. At the moment he will need to continue medical management. Comment: The patient's case was discussed and reviewed with the patient and his spouse. This note was generated using a voice recognition system and there may be incorrect words, spelling or punctuation that were not noted when reviewing the office note prior to saving. Procedure Criteria Procedure Type: Elective COVID Risk Discussion: The surgeon/proceduralist and patient have discussed in detail the risk of exposure to and/or potential harm posed by the COVID-19 virus with having a surgery/procedure at this time versus the risk of delaying the surgery/procedure. It is not possible to know either the risk of delaying the surgery or procedure or chance of getting an infection with perfect accuracy, but a joint decision was made between the patient and the surgeon/proceduralist to proceed at this time with the scheduled surgery/procedure as indicated on the consent form.
[2021-02-18 20:59] LABS: Magnesium 2.3 mg/dL (1.6-2.6)
[2021-02-18] MEDS: Carvedilol 3.125 MG TABLET PO (21:57)
[2021-02-19] VITALS (31 sets, daily range): BP systolic 94–140; BP diastolic 61–117; PULSE 67–86; RESP 16–32; TEMP 36.1–36.8; O2SAT 88–99
[2021-02-19 05:35] LABS: Absolute Lymphocyte Count 1.39 X10^3/uL (0.83-4.51); Absolute Neutrophil Count 8.4 X10^3/uL (2.0-7.7); Basophil# 0.06 X10^3/uL; Basophil% 0.5 % (0-1); Eosinophil# 0.15 X10^3/uL; Eosinophils% 1.4 % (0-5); Hematocrit 47.5 % (40-54); Hemoglobin 15.2 g/dL (13.0-16.5); Lymphocyte # 1.39 X10^3/ul (4.0); Lymphocyte % 12.6 % (19-41); Mean Corpuscular Hgb 26.3 pg (27.0-32.0); Mean Corpuscular Volume 82.2 fL (80-94); Mean Platelet Vol. 9.8 fl (6.2-12.0); Monocyte# 1.01 X10^3/uL; Monocyte% 9.2 % (0-10); NRBC Flagged by Analyzer 0 % (0-5); Neutrophil # 8.35 X10^3/uL (2.7-7.7); Platelet Count 255 K/mm3 (150-450); RBC Distribution Width CV 16.7 % (11.6-14.6); RBC Distribution Width SD 46.4 fl (35.1-43.9); Red Blood Count 5.78 M/mm3 (4.6-6.2)
[2021-02-19 05:50] LABS: Anion Gap 3 (5-15); BUN 13 mg/dL (7-18); BUN/Creat Ratio 12.6 RATIO (10-20); Calcium,Total 8.9 mg/dL (8.5-10.1); Chloride 103 mmol/L (98-107); Creatinine, Serum 1.03 mg/dL (0.70-1.30); EST Glomerular Filtration Rate 84 mL/min (>60); Est Glom Filt Rate - Afr Amer 102 mL/min (>60); Estimated Creatinine Clearance 100.52 ml/min; Glucose 96 mg/dL (74-106); Potassium 3.8 mmol/L (3.5-5.1); Sodium Level 138 mmol/L (136-145)
--- NOTE | 2021-02-19 05:55 | EKG12_ITS ---
Test Reason : AM EKG Blood Pressure : / mmHG Vent. Rate : 072 BPM Atrial Rate : 129 BPM P-R Int : 000 ms QRS Dur : 098 ms QT Int : 400 ms P-R-T Axes : 000 041 231 degrees QTc Int : 438 ms Atrial fibrillation Nonspecific ST and T wave abnormality Abnormal ECG When compared with ECG of 17-FEB-2021 09:39, MANUAL COMPARISON REQUIRED, DATA IS UNCONFIRMED Confirmed by DRAKE MOSS, RUPESH ([id number]), digital editor BOOKER WAGNER ([id number]) on 02/25/2021 1:11:25 PM Referred By: ZONIA Confirmed By:RUPESH JUAN MD
[2021-02-19] MEDS: Lisinopril 10 MG Tablet PO (06:07)
[2021-02-19] MEDS: Carvedilol 3.125 MG TABLET PO ×2 (06:07→10:10)
--- NOTE | 2021-02-19 08:53 | PCM.PN.CARD ---
Subjectve: The patient is status post diagnostic cardiac catheterization. He has no new acute complaints. Objective: Vital Signs Temp Pulse Resp BP Pulse Ox 97.6 F L 79 20 H 122/79 H 97 02/19/21 06:00 02/19/21 06:36 02/19/21 06:00 02/19/21 06:00 02/19/21 06:00 Oxygen Flow Rate (L/min) 2 Oxygen Delivery Method Nasal Cannula Weight: 327 lb 2.656 oz Body Mass Index (BMI) 48.1 Intake and Output for Last 24 Hours 02/17/21 02/18/21 02/19/21 23:59 23:59 23:59 Intake Total 525.58 / 525.58 1520.75 / 1520.75 84.0 / 84.0 Output Total 4300 / 4300 5500 / 5500 500 / 500 Balance -3774.42 / -3774.42 -3979.25 / -3979.25 -416.0 / -416.0 General: Awake, Alert, Oriented x 3, Cooperative, No Acute Distress, Obese HEENT: Atraumatic, Normocephalic, PERRL, EOMI, Sclera Non Icteric Neck: Supple, Good ROM, No JVD Lungs: Clear to auscultation Cardiovascular: Irregular Rhythm, Normal S1, Normal S2 Vascular: Normal Radial Pulses Abdomen: Bowel Sounds Present, Soft Extremities: Mild RLE Edema, Mild LLE Edema Neurological: No Focal Motor or Sensory Deficit Psych/Mental Status: Appropriate 02/18/21 20:31: Magnesium 2.3 02/19/21 05:14: WBC 11.0, RBC 5.78, Hgb 15.2, Hct 47.5, MCV 82.2, MCH 26.3 L, MCHC 32.0, Plt Count 255, MPV 9.8, Immature Gran % (Auto) 0.300, Neut % (Auto) 76.0 H, Lymph % (Auto) 12.6 L, [place] % (Auto) 9.2, Eos % (Auto) 1.4, Baso % (Auto) 0.5, Absolute Neuts (auto) 8.4 H, Nucleated RBC % 0 02/19/21 05:14: Sodium 138, Potassium 3.8, Chloride 103, Carbon Dioxide 32.0, Anion Gap 3 L, BUN 13, Creatinine 1.03, Est GFR (MDRD) Af Amer 102, Est GFR (MDRD) Non-Af 84, BUN/Creatinine Ratio 12.6, Glucose 96, Calcium 8.9 Rhythm: Atrial fibrillation Cardiac Cath: CONCLUSIONS Elevated Left Ventricular End Diastolic Pressure Global LV systolic dysfunction- Severe LVEF: by LV gram 20 % Angiographically normal coronary arteries Comment: 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 RECOMMENDATIONS Risk factor modification Medical therapy Consider further evaluation of the origin of the RCA c/w the LCA with Cardiac CTA if clinically indicated. DESCRIPTION OF PROCEDURE The patient arrived to the procedure lab. The risks and benefits of the procedure as well as a full description of our services here and current unavailability of surgical backup were fully explained to the patient and/or their significant other prior to the catheterization. The Timeout was completed, verifying the correct patient and procedure. The patient's procedural site was prepped and draped in the usual fashion. Local anesthetic was given subcutaneously to right radial region with Lidocaine 2%. Using a modified Seldinger technique, and ultrasound guidance,arterial access was obtained via the right radial artery, a 6Fr sheath was inserted. Left Coronary Artery selective angiography was performed in multiple views using a 5 Fr. 4.0 [place] catheter. Right Coronary Artery selective angiography was then performed in multiple views using a 5 Fr. JR 4 catheter. Left Ventriculography was performed in MARTELL projection using a 5 Fr. Pigtail catheter. LV to AO pullback pressures were then recorded. Ascending (root) aorta selective angiography was then performed in single view. Ascending (root) aorta selective angiography was then performed in single view.The arterial sheath was pulled and a TR Band was applied for hemostasis w/ 10ml air CORONARY ANGIOGRAPHY DOMINANCE: Right Dominant LEFT HEART ASSESSMENT Left Ventricular Ejection Fraction: by LV Gram 20 % Global Hypokinesis - Severe Elevated Left Ventricular End Diastolic Pressure LVEDP: 34 mmHg LEFT MAIN: Angiographically normal LEFT ANTERIOR DESCENDING ARTERY: Angiographically normal CIRCUMFLEX ARTERY: Angiographically normal RIGHT CORONARY ARTERY: Angiographically normal AORTIC ROOT: Angiographically normal Medical Necessity - Tobacco Use Smoking Status: Current some day smoker Tobacco Use: Cigarettes Assessment/Plan 1. Atrial fibrillation The patient presents with atrial fibrillation. The duration is uncertain. The etiology may be related to his underlying diagnosis of a non-CAD related cardiomyopathy. He has been treated with rate control therapy. He will continue anticoagulant therapy. 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 He will need to continue medical management. He will need future follow-up with echocardiographic studies to monitor his left ventricular systolic function and LVEF. If over time his left ventricular systolic function/LVEF does not improve then he will need to be considered for primary prevention ICD. Also based upon his young age he may need to be considered for tertiary care center evaluation as to whether or not he would be a candidate for any advanced CHF therapy and/or cardiac transplantation. 3. CHF - systolic The patient has undergone further evaluation with transthoracic echocardiogram and a diagnostic cardiac catheterization. It appears he has a non-CAD related cardiomyopathy with diminished LV systolic function/LVEF. At the present time the patient will continue medical management. 4. Hypertension The patient's blood pressure is elevated. He appears to be unaware of any diagnosis of hypertension. It is unclear whether this would be a contributing factor to his other symptoms and objective findings versus being secondary to such. At the moment he will need to continue medical management. Comment: The patient's case was discussed and reviewed with the patient and his spouse. This note was generated using a voice recognition system and there may be incorrect words, spelling or punctuation that were not noted when reviewing the office note prior to saving.
[2021-02-19] MEDS: 0.9% Normal Saline 1,000 ML 50 ML IV (09:05)
--- NOTE | 2021-02-19 09:09 | CL.D_ITS ---
Patient Name: SELENA SCHAFFER Study Date: 02/19/2021 Performing: Juan Ramon Duran MD Ht: 71 inches 180 cm : 1980 Wt: 326.7 lbs 148 kg Age: 40 Gender: male BSA: 2.59 PROCEDURE(S) PERFORMED XF25-[id number]/COR/LV DC11-AO ROOT ANGIO WITH HEART CATH CLINICAL PROFILE AND INDICATIONS Indications: Cardiomyopathy, LV Dysfunction Heart Failure: NYHA Class: 3, Newly Diagnosed: Yes, Heart Failure Type: Systolic Stress/Imaging Stress/Image Study Performed: No Angina Classification Anginal Classification w/in 2 Weeks: Anginal Equivalent Dyspnea CAD Presentations: Other: dyspnea on exertion CONCLUSIONS Elevated Left Ventricular End Diastolic Pressure Global LV systolic dysfunction- Severe LVEF: by LV gram 20 % Angiographically normal coronary arteries Comment: 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 RECOMMENDATIONS Risk factor modification Medical therapy Consider further evaluation of the origin of the RCA c/w the LCA with Cardiac CTA if clinically indic ated. DESCRIPTION OF PROCEDURE The patient arrived to the procedure lab. The risks and benefits of the procedure as well as a full d escription of our services here and current unavailability of surgical backup were fully explained to the patient and/or their significant other prior to the catheterization. The Timeout was completed, verifying the correct patient and procedure. The patient's procedural site was prepped and draped in the usual fashion. Local anesthetic was given subcutaneously to right radial region with Lidocaine 2% . Using a modified Seldinger technique, and ultrasound guidance,arterial access was obtained via the right radial artery, a 6Fr sheath was inserted. Left Coronary Artery selective angiography was perfo rmed in multiple views using a 5 Fr. 4.0 [place] catheter. Right Coronary Artery selective angiography was then performed in multiple views using a 5 Fr. JR 4 catheter. Left Ventriculography was performed in MARTELL projection using a 5 Fr. Pigtail catheter. LV to AO pullback pressures were then recorded. Ascending (root) aorta selective angiography was then performed in single view. Ascending ( root) aorta selective angiography was then performed in single view.The arterial sheath was pulled an d a TR Band was applied for hemostasis w/ 10ml air CORONARY ANGIOGRAPHY DOMINANCE: Right Dominant LEFT HEART ASSESSMENT Left Ventricular Ejection Fraction: by LV Gram 20 % Global Hypokinesis - Severe Elevated Left Ventricular End Diastolic Pressure LVEDP: 34 mmHg LEFT MAIN: Angiographically normal LEFT ANTERIOR DESCENDING ARTERY: Angiographically normal CIRCUMFLEX ARTERY: Angiographically normal RIGHT CORONARY ARTERY: Angiographically normal AORTIC ROOT: Angiographically normal COMPLICATIONS No Complications PROCEDURE MEDICATIONS Versed 1 mg IV Fentanyl 50 mcg IV Oxygen: 2 L/min via nasal cannula Cardizem 125mg / 100ml D5W @ 10 mg/hr infusing on arrival from PCU 02/19/2021 07:18:02 Heparin diluted in 23cc Heparinized saline. Patient given 10cc IA of this solution. 02/19/2021 08:01:4 9 Lasix 40 mg IV 02/19/2021 08:33:03 Verapamil 2.5mg, Ntg 100mcgs, 2000 units of Heparin diluted in 23cc Heparinized saline. Patient give n 10cc IA of this solution. 02/19/2021 08:01:49 SUMMARY OF HEMODYNAMIC DATA Time AIR REST ECG 07:19:08 AO 108/90 (99) SA 08:04:51 LV 137/7, 31 08:26:37 LV 147/2, 34 08:26:43 LV 133/7, 34 08:27:55 LVp 147/6, 30 08:28:01 AOp 150/94 (114) 08:28:06 Signed By Juan Ramon Duran MD On 02/19/2021 09:08:33 Juan Ramon Duran MD
[2021-02-19] MEDS: Digoxin 250 MCG Tablet PO (10:09)
[2021-02-19] MEDS: Isosorbide Mononitrate 30 MG Tablet PO (10:10)
[2021-02-19] MEDS: SACUBITRIL/VALSARTAN 24/26 MG TABLET 1 EACH PO ×2 (10:10→21:39)
--- NOTE | 2021-02-19 12:40 | PN_ITS ---
Patient Problems: Active and Suspected Problems (Last Updated 02/19/21 @ 09:12 by Joycelyn Barnard) Atrial fibrillation with RVR (Acute) CHF (congestive heart failure) (Acute) Subjective: Patient seen and examined. He has no complaints. He had cardiac cath which showed non obstructive coronary arteries. He remains on cardizem drip. He has otherwise remained hemodynamically stable. Vitals/I&O's: Vital Signs Temp Pulse Resp BP Pulse Ox 98.3 F 77 30 H 109/69 97 02/19/21 11:00 02/19/21 12:00 02/19/21 12:00 02/19/21 12:00 02/19/21 12:00 Oxygen Flow Rate (L/min) 2 Oxygen Delivery Method Nasal Cannula Weight: 327 lb 2.656 oz Body Mass Index (BMI) 48.1 Intake and Output for Last 24 Hours 02/17/21 02/18/21 02/19/21 23:59 23:59 23:59 Intake Total 525.58 / 525.58 1520.75 / 1520.75 616.5 / 616.5 Output Total 4300 / 4300 5500 / 5500 1700 / 1700 Balance -3774.42 / -3774.42 -3979.25 / -3979.25 -1083.5 / -1083.5 General: Alert, Oriented x3, Cooperative, No apparent distress, - - Super morbid obesity HEENT: Atraumatic, PERRLA, EOMI, Normocephalic Oral: Dry Mucosa Neck: Supple, No JVD, Negative Carotid Bruits Lungs: Diminished - diminished breath sounds bibasally, no wheezes or crackles. Cardiovascular: Irregular Rate - afib, rate controlled. still on cardizem drip Abdomen: Bowel Sounds Present, Soft, Non Tender, Obese Extremities: No edema, Capillary Refill Less than 3 Seconds Skin: No rashes, No breakdown Musculoskeletal: No Tenderness to Palpation of Joints or Extremities Lymphatic: No Cervical, Supraclavicular, or Inguinal Adenopathy Neurological: Cranial nerves II-XII grossly intact, Neuro grossly intact, Motor Exam 5/5 strength throughout Psych/Mental Status: Normal Affect, Appropriate, Alert and oriented to time, place, person, mood and affect Microbiology Past 72 Hours 02/17/21 10:13 Mucosa - Nose SARS-CoV-2 Antigen (Rapid) - Final Laboratory Results 02/18/21 20:31: Magnesium 2.3 02/19/21 05:14: WBC 11.0, RBC 5.78, Hgb 15.2, Hct 47.5, MCV 82.2, MCH 26.3 L, MCHC 32.0, RDW Std Deviation 46.4 H, RDW Coeff of Cecilia 16.7 H, Plt Count 255, MPV 9.8, Immature Gran % (Auto) 0.300, Neut % (Auto) 76.0 H, Lymph % (Auto) 12.6 L, [place] % (Auto) 9.2, Eos % (Auto) 1.4, Baso % (Auto) 0.5, Absolute Neuts (auto) 8.4 H, Absolute Lymphs (auto) 1.39, Nucleated RBC % 0 02/19/21 05:14: Sodium 138, Potassium 3.8, Chloride 103, Carbon Dioxide 32.0, Anion Gap 3 L, BUN 13, Creatinine 1.03, Estim Creat Clear Calc 100.52, Est GFR (MDRD) Af Amer 102, Est GFR (MDRD) Non-Af 84, BUN/Creatinine Ratio 12.6, Glucose 96, Calcium 8.9 Current Medications Acetaminophen (Acetaminophen 325 Mg Tablet) 650 mg PO Q6H PRN PRN PRN Reason: Pain Score 1-3 /Temp>100.7 Apixaban (Apixaban 5 Mg Tablet) 5 mg PO BID [facility] Atorvastatin Calcium (Atorvastatin Calcium 20 Mg Tablet) 20 mg PO QHS [facility] Carvedilol ([facility] 6.25 Mg Tablet) [facility] Digoxin (Digoxin 250 Mcg Tablet) 250 mcg PO DAILY [facility] Last Admin: 02/19/21 10:09 Dose: 250 mcg Documented by: Furosemide (Furosemide 40 Mg/4 Ml Vial) 40 mg IV BID@1000,1800 [facility] Last Admin: 02/19/21 09:04 Dose: Not Given Documented by: Diltiazem HCl 125 mg/ Dextrose 125 mls @ 5 mls/hr IV .Q25H STEPH[facility]; Protocol Last Titration: 02/19/21 12:00 Dose: 10 mg/hr, 10 mls/hr Documented by: Sodium Chloride () 250 mls @ 15 mls/hr IV .[id number] PRN PRN Reason: Saline Flush Sodium Chloride () 250 mls @ 15 mls/hr IV .[id number] PRN PRN Reason: Additional IVPB Infusion Sodium Chloride () 1,000 mls @ 0 mls/hr IV .Q0M STEPHANE Sodium Chloride () 200 mls @ 50 mls/hr IV .Q4H [facility] Last Admin: 02/19/21 09:05 Dose: 50 mls/hr Documented by: Isosorbide Mononitrate (Isosorbide Mononitrate 30 Mg Tablet) 30 mg PO DAILY [facility] Last Admin: 02/19/21 10:10 Dose: 30 mg Documented by: Nitroglycerin (Nitroglycerin (Inpatient Use) 0.4 Mg Tab.Subl) 0.4 mg SL Q5M PRN PRN Reason: CARDIAC/CHEST PAIN Ondansetron HCl (Ondansetron 4 Mg/2 Ml Vial) 4 mg IV Q8H PRN PRN PRN Reason: NAUSEA/VOMITING Sacubitril/Valsartan (Sacubitril/Valsartan 24/26 Mg Tablet) 1 each PO BID [facility] Last Admin: 02/19/21 10:10 Dose: 1 each Documented by: Sodium Chloride (0.9% Saline Lock 10 Ml Syringe) 10 - 40 ml IV UD PRN PRN Reason: SALINE FLUSH Last Admin: 02/18/21 17:35 Dose: 10 ml Documented by: STROKE Vital Signs/Narrative: Vital Signs Temp Pulse Resp BP Pulse Ox 02/19/21 12:00 77 30 H 109/69 97 02/19/21 11:00 98.3 F 78 18 102/84 H 98 02/19/21 10:00 79 27 H 116/76 98 02/19/21 09:45 76 25 H 117/85 H 99 02/19/21 09:30 97.8 F 85 20 H 120/82 H 99 02/19/21 09:15 84 32 H 118/85 H 95 02/19/21 09:00 84 30 H 134/99 H 95 02/19/21 08:55 97 F L 69 30 H 115/86 H 98 Medical Necessity - Tobacco Use Smoking Status: Current some day smoker Tobacco Use: Cigarettes Assessment/Plan All Active Problems (Last Updated 02/19/21 @ 09:12 by Joycelyn Barnard) Atrial fibrillation with RVR (Acute) CHF (congestive heart failure) (Acute) 40 y/o admitted with a complaint of afib with RVR and shortness of breath #Afib with RVR * remains on cardizem drip * still in afib, though rate controlled on cardizem drip * to titrate cardizem drip off as tolerated * TSh was WNL * 2D echo showed EF of 20%, with moderately dilated LV, and moderate concentric left ventricular hypertrophy with moderately enlarged left atrium and RVSP estimated to be 36 mmHg. Unable to assess diastolic dysfunction. * Cardiology on board. now on eliquis * started on digoxin per cardiology * #Nonischemic cardiomyopathy * 2D echo showed EF of 20%. he had cardiac cath today which showed EF of 20%, and angiographically normal coronary arteries * cardiology on board; recommend medical therapy and and to consider further evaluation of the RCA with cardiac CTA if clinically indicated. * started on atorvastatin, carvedilol and imdur * * #Acute HFrEF * echo findings as above. * on IV lasix 40mg bid; started on entresto * on carevedilol * monitor intake and output * fluid restriction to 1500cc daily * #Probable obstructive sleep apnea * Patient has a history of snoring at night and apneic episodes. This is likely contributing to his A. fib with RVR. * to follow up with pulmonology on outpatient basis. Has an appointment for March 02 * * DVT prophylaxis:now on eliquis. CODE STATUS: Full code * Inpatient E&M: 94540 Subs Hosp L3
--- NOTE | 2021-02-19 15:28 | NURSING ---
STUDENT CHARTING REVIEWED BY THIS RN.
[2021-02-19] MEDS: Carvedilol 6.25 MG Tablet PO (17:11)
[2021-02-19] MEDS: 0.9% Saline Lock 10 ML Syringe IV (17:11)
[2021-02-19] MEDS: Furosemide 40 MG/4 ML Vial IV (17:11)
[2021-02-19] MEDS: APIXABAN 5 MG TABLET PO (21:39)
[2021-02-19] MEDS: Atorvastatin Calcium 20 MG Tablet PO (21:39)
[2021-02-20] VITALS (24 sets, daily range): BP systolic 96–129; BP diastolic 68–95; PULSE 69–102; RESP 16–29; TEMP 36.1–37; O2SAT 91–98
[2021-02-20 06:18] LABS: Absolute Lymphocyte Count 1.32 X10^3/uL (0.83-4.51); Absolute Neutrophil Count 9.2 X10^3/uL (2.0-7.7); Basophil# 0.07 X10^3/uL; Basophil% 0.6 % (0-1); Eosinophil# 0.16 X10^3/uL; Eosinophils% 1.3 % (0-5); Hematocrit 53.6 % (40-54); Hemoglobin 16.8 g/dL (13.0-16.5); Lymphocyte # 1.32 X10^3/ul (4.0); Lymphocyte % 10.9 % (19-41); Mean Corp Hgb Conc 31.3 g/dL (32-36); Mean Corpuscular Hgb 25.5 pg (27.0-32.0); Mean Corpuscular Volume 81.2 fL (80-94); Mean Platelet Vol. 9.9 fl (6.2-12.0); Monocyte# 1.23 X10^3/uL; Monocyte% 10.2 % (0-10); NRBC Flagged by Analyzer 0 % (0-5); Neutrophil # 9.24 X10^3/uL (2.7-7.7); Neutrophil % 76.6 % (47-70); Platelet Count 277 K/mm3 (150-450); RBC Distribution Width CV 16.6 % (11.6-14.6); RBC Distribution Width SD 44.6 fl (35.1-43.9); White Blood Count 12.1 K/mm3 (4.4-11.0)
[2021-02-20 07:10] LABS: Anion Gap 5 (5-15); BUN 11 mg/dL (7-18); BUN/Creat Ratio 10.6 RATIO (10-20); Calcium,Total 9.3 mg/dL (8.5-10.1); Chloride 103 mmol/L (98-107); Creatinine, Serum 1.04 mg/dL (0.70-1.30); EST Glomerular Filtration Rate 83 mL/min (>60); Est Glom Filt Rate - Afr Amer 101 mL/min (>60); Estimated Creatinine Clearance 99.56 ml/min; Glucose 98 mg/dL (74-106); Potassium 3.6 mmol/L (3.5-5.1); Sodium Level 137 mmol/L (136-145)
[2021-02-20] MEDS: Digoxin 250 MCG Tablet PO (08:55)
[2021-02-20] MEDS: Furosemide 40 MG Tablet PO ×2 (08:55→17:27)
[2021-02-20] MEDS: Carvedilol 12.5 MG Tablet PO ×2 (08:55→17:27)
[2021-02-20] MEDS: APIXABAN 5 MG TABLET PO ×2 (08:56→21:51)
[2021-02-20] MEDS: SACUBITRIL/VALSARTAN 24/26 MG TABLET 1 EACH PO ×2 (08:56→21:51)
[2021-02-20] MEDS: Isosorbide Mononitrate 30 MG Tablet PO (08:56)
--- NOTE | 2021-02-20 10:08 | PN_ITS ---
Patient Problems: Active and Suspected Problems (Last Updated 02/19/21 @ 09:12 by Joycelyn Barnard) Atrial fibrillation with RVR (Acute) CHF (congestive heart failure) (Acute) Subjective: Patient seen and examined. He had no complaints and felt well today. Review of systems is otherwise negative. He remains on cardizem drip. He has remained hemodynamically stable. Vitals/I&O's: Vital Signs Temp Pulse Resp BP Pulse Ox 98.6 F 87 19 H 116/83 H 98 02/20/21 04:00 02/20/21 09:03 02/20/21 09:03 02/20/21 09:03 02/20/21 09:03 Oxygen Flow Rate (L/min) 2 Oxygen Delivery Method Room Air Weight: 326 lb 11.601 oz Body Mass Index (BMI) 48.1 Intake and Output for Last 24 Hours 02/18/21 02/19/21 02/20/21 23:59 23:59 23:59 Intake Total 1520.75 / 1520.75 1166.50 / 1176.50 84.17 / 84.17 Output Total 5500 / 5500 2950 / 2950 700 / 700 Balance -3979.25 / -3979.25 -1783.50 / -1773.50 -615.83 / -615.83 General: Alert, Oriented x3, Cooperative, No apparent distress, - - Super morbid obesity HEENT: Atraumatic, PERRLA, EOMI, Normocephalic Oral: Dry Mucosa Neck: Supple, No JVD, Negative Carotid Bruits Lungs: Diminished - diminished breath sounds bibasally, no wheezes or crackles. Cardiovascular: Irregular Rate - afib, rate controlled. still on cardizem drip Abdomen: Bowel Sounds Present, Soft, Non Tender, Obese Extremities: No edema, Capillary Refill Less than 3 Seconds Skin: No rashes, No breakdown Musculoskeletal: No Tenderness to Palpation of Joints or Extremities Lymphatic: No Cervical, Supraclavicular, or Inguinal Adenopathy Neurological: Cranial nerves II-XII grossly intact, Neuro grossly intact, Motor Exam 5/5 strength throughout Psych/Mental Status: Normal Affect, Appropriate, Alert and oriented to time, place, person, mood and affect Microbiology Past 72 Hours 02/17/21 10:13 Mucosa - Nose SARS-CoV-2 Antigen (Rapid) - Final Laboratory Results 02/20/21 05:25: WBC 12.1 H, RBC 6.60 H, Hgb 16.8 H, Hct 53.6, MCV 81.2, MCH 25.5 L, MCHC 31.3 L, RDW Std Deviation 44.6 H, RDW Coeff of Cecilia 16.6 H, Plt Count 277, MPV 9.9, Immature Gran % (Auto) 0.400, Neut % (Auto) 76.6 H, Lymph % (Auto) 10.9 L, [place] % (Auto) 10.2 H, Eos % (Auto) 1.3, Baso % (Auto) 0.6, Absolute Neuts (auto) 9.2 H, Absolute Lymphs (auto) 1.32, Nucleated RBC % 0 02/20/21 05:25: Sodium 137, Potassium 3.6, Chloride 103, Carbon Dioxide 29.0, Anion Gap 5, BUN 11, Creatinine 1.04, Estim Creat Clear Calc 99.56, Est GFR (MDRD) Af Amer 101, Est GFR (MDRD) Non-Af 83, BUN/Creatinine Ratio 10.6, Glucose 98, Calcium 9.3 Current Medications Acetaminophen (Acetaminophen 325 Mg Tablet) 650 mg PO Q6H PRN PRN PRN Reason: Pain Score 1-3 /Temp>100.7 Apixaban (Apixaban 5 Mg Tablet) 5 mg PO BID [facility] Last Admin: 02/20/21 08:56 Dose: 5 mg Documented by: Atorvastatin Calcium (Atorvastatin Calcium 20 Mg Tablet) 20 mg PO QHS [facility] Last Admin: 02/19/21 21:39 Dose: 20 mg Documented by: Carvedilol (Carvedilol 12.5 Mg Tablet) [facility] Last Admin: 02/20/21 08:55 Dose: 12.5 mg Documented by: Digoxin (Digoxin 250 Mcg Tablet) 250 mcg PO DAILY [facility] Last Admin: 02/20/21 08:55 Dose: 250 mcg Documented by: Furosemide (Furosemide 40 Mg Tablet) 40 mg PO BID@1000,1800 [facility] Last Admin: 02/20/21 08:55 Dose: 40 mg Documented by: Diltiazem HCl 125 mg/ Dextrose 125 mls @ 5 mls/hr IV .Q25H [facility]; Protocol Last Titration: 02/20/21 09:03 Dose: Infused Documented by: Sodium Chloride () 250 mls @ 15 mls/hr IV .[id number] PRN PRN Reason: Saline Flush Sodium Chloride () 250 mls @ 15 mls/hr IV .[id number] PRN PRN Reason: Additional IVPB Infusion Sodium Chloride () 1,000 mls @ 0 mls/hr IV .Q0M [facility] Isosorbide Mononitrate (Isosorbide Mononitrate 30 Mg Tablet) 30 mg PO DAILY [facility] Last Admin: 02/20/21 08:56 Dose: 30 mg Documented by: Nitroglycerin (Nitroglycerin (Inpatient Use) 0.4 Mg Tab.Subl) 0.4 mg SL Q5M PRN PRN Reason: CARDIAC/CHEST PAIN Ondansetron HCl (Ondansetron 4 Mg/2 Ml Vial) 4 mg IV Q8H PRN PRN PRN Reason: NAUSEA/VOMITING Sacubitril/Valsartan (Sacubitril/Valsartan 24/26 Mg Tablet) 1 each PO BID [facility] Last Admin: 02/20/21 08:56 Dose: 1 each Documented by: Sodium Chloride (0.9% Saline Lock 10 Ml Syringe) 10 - 40 ml IV UD PRN PRN Reason: SALINE FLUSH Last Admin: 02/19/21 17:11 Dose: 10 ml Documented by: STROKE Vital Signs/Narrative: Vital Signs Pulse Resp BP Pulse Ox 02/20/21 09:03 87 19 H 116/83 H 98 02/20/21 08:00 73 23 H 121/72 H 95 02/20/21 07:00 73 25 H 110/74 93 Medical Necessity - Tobacco Use Smoking Status: Current some day smoker Tobacco Use: Cigarettes Assessment/Plan All Active Problems (Last Updated 02/19/21 @ 09:12 by Joycelyn Barnard) Atrial fibrillation with RVR (Acute) CHF (congestive heart failure) (Acute) 40 y/o admitted with a complaint of afib with RVR and shortness of breath #Afib with RVR * remains on cardizem drip * still in afib, though rate controlled on cardizem drip * to titrate cardizem drip off as tolerated * TSh was WNL * 2D echo showed EF of 20%, with moderately dilated LV, and moderate concentric left ventricular hypertrophy with moderately enlarged left atrium and RVSP estimated to be 36 mmHg. Unable to assess diastolic dysfunction. * Cardiology on board. on eliquis * also on digoxin. * #Nonischemic cardiomyopathy * 2D echo showed EF of 20%. he had cardiac cath today which showed EF of 20%, and angiographically normal coronary arteries * cardiology on board; recommend medical therapy and and to consider further evaluation of the RCA with cardiac CTA if clinically indicated. * on atorvastatin, carvedilol and imdur * * #Acute HFrEF * echo findings as above. * on PO lasix 40mg bid and entresto * on carevedilol * monitor intake and output * fluid restriction to 1500cc daily * #Probable obstructive sleep apnea * Patient has a history of snoring at night and apneic episodes. This is likely contributing to his A. fib with RVR. * to follow up with pulmonology on outpatient basis. Has an appointment for March 02 * * DVT prophylaxis:now on eliquis. CODE STATUS: Full code * Inpatient E&M: 16587 Subs Hosp L2
--- NOTE | 2021-02-20 10:31 | NURSING ---
Cardizem drip titrated to 0ml/hr at 1015
--- NOTE | 2021-02-20 11:47 | PHA.DC.COU ---
Pharmacy Services has performed discharge medication counseling for this patient. The patient was counseled on the following discharge medications and changes in medications for homegoing review. 1. ENTRESTO 2. ELIQUIS 3. LASIX 4. COREG 5. LIPITOR The Reason for Use, instructions for use, and potential side effects were reviewed for all new medications. The patient's questions regarding all of their medications were answered. The patient was able to verbally demonstrate an understanding of their discharge medications. NOTE: Patient did not have a discharge in at time of counseling. Counseling recommended per RN, as pt has not taken medications previously. Went over general side effects of medication classes, in the event the medications are changed/altered.
--- NOTE | 2021-02-20 12:04 | CASEMGMT ---
Pt provided with [employer] $10 co pay card and instruction at this time. Pt voices no further questions/concerns/needs. SStbrittany NOLEN CM
[2021-02-20] MEDS: Atorvastatin Calcium 20 MG Tablet PO (21:51)
[2021-02-21 03:00] VITALS: PULSE 98
[2021-02-21 03:55] VITALS: BP 138/84; PULSE 82; RESP 18; TEMP 36.1; O2SAT 95
[2021-02-21 06:44] LABS: Absolute Lymphocyte Count 1.49 X10^3/uL (0.83-4.51); Basophil# 0.07 X10^3/uL; Basophil% 0.6 % (0-1); Eosinophils% 1.8 % (0-5); Hemoglobin 17.9 g/dL (13.0-16.5); Lymphocyte # 1.49 X10^3/ul (4.0); Lymphocyte % 13.7 % (19-41); Mean Corp Hgb Conc 31.6 g/dL (32-36); Mean Corpuscular Hgb 25.6 pg (27.0-32.0); Mean Corpuscular Volume 81.2 fL (80-94); Mean Platelet Vol. 9.8 fl (6.2-12.0); Monocyte# 1.09 X10^3/uL; NRBC Flagged by Analyzer 0 % (0-5); Neutrophil # 8.03 X10^3/uL (2.7-7.7); Neutrophil % 73.6 % (47-70); Platelet Count 303 K/mm3 (150-450); RBC Distribution Width CV 17.1 % (11.6-14.6); RBC Distribution Width SD 44.6 fl (35.1-43.9); Red Blood Count 6.98 M/mm3 (4.6-6.2); White Blood Count 10.9 K/mm3 (4.4-11.0)
[2021-02-21 07:03] VITALS: PULSE 125
[2021-02-21 07:13] LABS: Hematocrit 56.7 % (40-54)
[2021-02-21 07:59] LABS: Anion Gap 5 (5-15); BUN 15 mg/dL (7-18); BUN/Creat Ratio 12.8 RATIO (10-20); Calcium,Total 9.4 mg/dL (8.5-10.1); Chloride 103 mmol/L (98-107); Creatinine, Serum 1.17 mg/dL (0.70-1.30); EST Glomerular Filtration Rate 73 mL/min (>60); Est Glom Filt Rate - Afr Amer 88 mL/min (>60); Estimated Creatinine Clearance 88.49 ml/min; Glucose 95 mg/dL (74-106); Potassium 3.6 mmol/L (3.5-5.1); Sodium Level 137 mmol/L (136-145)
[2021-02-21 08:09] VITALS: O2SAT 95
[2021-02-21 09:02] VITALS: BP 130/62; PULSE 116; RESP 18; TEMP 36.6; O2SAT 94
[2021-02-21] MEDS: Digoxin 250 MCG Tablet PO (09:04)
[2021-02-21] MEDS: Carvedilol 12.5 MG Tablet PO (09:04)
[2021-02-21] MEDS: SACUBITRIL/VALSARTAN 24/26 MG TABLET 1 EACH PO (09:04)
[2021-02-21] MEDS: Furosemide 40 MG Tablet PO (09:04)
[2021-02-21] MEDS: Isosorbide Mononitrate 30 MG Tablet PO (09:04)
[2021-02-21] MEDS: APIXABAN 5 MG TABLET PO (09:04)
--- NOTE | 2021-02-21 13:25 | PN.CARD_ITS ---
Subjectve: The patient is awake and alert. He is on oral medications. He states thus far he continues to feel better and has had no setbacks changing from IV to oral medications. Objective: Vital Signs Temp Pulse Resp BP Pulse Ox 97.9 F 116 H 18 130/62 H 94 02/21/21 09:02 02/21/21 09:02 02/21/21 09:02 02/21/21 09:02 02/21/21 09:02 Oxygen Flow Rate (L/min) 2 Oxygen Delivery Method Room Air Weight: 321 lb 3.416 oz Body Mass Index (BMI) 48.1 Intake and Output for Last 24 Hours 02/19/21 02/20/21 02/21/21 23:59 23:59 23:59 Intake Total 1166.50 / 1176.50 84.17 / 204.17 920 / 920 Output Total 2950 / 2950 900 / 900 Balance -1783.50 / -1773.50 -815.83 / -695.83 920 / 920 General: Awake, Alert, Oriented x 3, Cooperative, No Acute Distress, Obese HEENT: Atraumatic, Normocephalic, PERRL, EOMI, Sclera Non Icteric Neck: Supple, Good ROM, No JVD Lungs: Clear to auscultation Cardiovascular: Irregular Rhythm, Normal S1, Normal S2 Vascular: No Carotid Bruits Abdomen: Bowel Sounds Present, Soft Extremities: Trace RLE Edema, Trace LLE Edema Neurological: No Focal Motor or Sensory Deficit Psych/Mental Status: Appropriate 02/21/21 06:09: WBC 10.9, RBC 6.98 H, Hgb 17.9 H, Hct 56.7 H, MCV 81.2, MCH 25.6 L, MCHC 31.6 L, Plt Count 303, MPV 9.8, Immature Gran % (Auto) 0.300, Neut % (Auto) 73.6 H, Lymph % (Auto) 13.7 L, [place] % (Auto) 10.0, Eos % (Auto) 1.8, Baso % (Auto) 0.6, Absolute Neuts (auto) 8.0 H, Nucleated RBC % 0 02/21/21 06:09: Sodium 137, Potassium 3.6, Chloride 103, Carbon Dioxide 29.0, Anion Gap 5, BUN 15, Creatinine 1.17, Est GFR (MDRD) Af Amer 88, Est GFR (MDRD) Non-Af 73, BUN/Creatinine Ratio 12.8, Glucose 95, Calcium 9.4 Rhythm: Atrial fibrillation Medical Necessity - Tobacco Use Smoking Status: Current some day smoker Tobacco Use: Cigarettes Assessment/Plan 1. Atrial fibrillation The patient presents with atrial fibrillation. The duration is uncertain. The etiology may be related to his underlying diagnosis of a non-CAD related cardiomyopathy. He has been treated with rate control therapy. He will continue anticoagulant therapy. 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 He will need to continue medical management. He will need future follow-up with echocardiographic studies to monitor his left ventricular systolic function and LVEF. If over time his left ventricular systolic function/LVEF does not improve then he will need to be considered for primary prevention ICD. Also based upon his young age he may need to be considered for tertiary care center evaluation as to whether or not he would be a candidate for any advanced CHF therapy and/or cardiac transplantation. 3. CHF - systolic The patient has undergone further evaluation with transthoracic echocardiogram and a diagnostic cardiac catheterization. It appears he has a non-CAD related cardiomyopathy with diminished LV systolic function/LVEF. At the present time the patient will continue medical management. 4. Hypertension The patient's blood pressure is elevated. He appears to be unaware of any diagnosis of hypertension. It is unclear whether this would be a contributing factor to his other symptoms and objective findings versus being secondary to such. At the moment he will need to continue medical management. Comment: Overall, the patient has had improvement in his symptoms and his clinical status. He appears to be without an obvious adverse event changing from IV medications to oral medications. He will need continued medical therapy and outpatient follow-up of his underlying cardiovascular conditions. The patient's case was discussed and reviewed with the patient and Dr. Quinones. This note was generated using a voice recognition system and there may be incorrect words, spelling or punctuation that were not noted when reviewing the office note prior to saving.
--- NOTE | 2021-02-21 14:17 | PCM.DC ---
- Discharge Diagnoses Current Active Problems: Current Active and Chronic Problems (Last Updated 02/19/21 @ 09:12 by Joycelyn Barnard) Atrial fibrillation with RVR (Acute) CHF (congestive heart failure) (Acute) HTN (hypertension) (Chronic) You will use the following diet at home:: Cardiac Your food should be the consistency of: Regular Your liquids should be the consistency of: Regular/Thin Discharge Activity: Return to Normal Activity Weight Bearing Status: Weight bearing as tolerated Call your doctor if you observe: Fever of 101 or Higher, Shortness of breath, Dizziness, Swelling in the ankles, Increased palpitations (irregular heartbeat) Instructions: ED Atrial Flutter, What Is Atrial Flutter/Atrial Fibrillation?, Heart Failure Allergies/Adverse Reactions: Allergies aspirin Allergy (Verified 02/17/21 09:30) Shortness of breath Penicillins Allergy (Verified 02/17/21 09:30) Anaphylaxis Sulfa (Sulfonamide Antibiotics) Allergy (Verified 02/17/21 09:30) PT UNSURE OF REACTION Medications to take at Discharge Apixaban [Eliquis] 5 mg PO BID #60 tablet 02/21/21 Atorvastatin Calcium [Lipitor] 20 mg PO QHS #30 tablet 02/21/21 Carvedilol [Coreg (Beta Zoë)] 12.5 mg PO BIDCM #60 tablet 02/21/21 Digoxin [Lanoxin] 250 mcg PO DAILY #30 tablet 02/21/21 Furosemide [Lasix] 40 mg PO BID@1000,1800 #60 tablet 02/21/21 Isosorbide Mononitrate [Imdur] 30 mg PO DAILY #30 tablet 02/21/21 Nitroglycerin (INPATIENT USE) [Nitrostat] 0.4 mg SL Q5M PRN #30 tab.subl 02/21/21 Potassium Chloride Oral Tablet [K-Dur] 20 meq PO DAILY #30 tab 02/21/21 Sacubitril/Valsartan 24/26 mg [Entresto 24 mg-26 mg Tablet] 1 each PO BID #60 tablet 02/21/21 The following prescriptions were given: Carvedilol [Coreg (Beta Zoë)] 12.5 mg PO BIDCM #60 tablet Transmission Status: Pending to [facility] Apixaban [Eliquis] 5 mg PO BID #60 tablet Transmission Status: Pending to [facility] Sacubitril/Valsartan 24/26 mg [Entresto 24 mg-26 mg Tablet] 1 each PO BID #60 tablet Transmission Status: Pending to [facility] Isosorbide Mononitrate [Imdur] 30 mg PO DAILY #30 tablet Transmission Status: Pending to [facility] Potassium Chloride Oral Tablet [K-Dur] 20 meq PO DAILY #30 tab Transmission Status: Pending to [facility] Digoxin [Lanoxin] 250 mcg PO DAILY #30 tablet Transmission Status: Pending to [facility] Furosemide [Lasix] 40 mg PO BID@1000,1800 #60 tablet Transmission Status: Pending to [facility] Atorvastatin Calcium [Lipitor] 20 mg PO QHS #30 tablet Transmission Status: Pending to [facility] Nitroglycerin (INPATIENT USE) [Nitrostat] 0.4 mg SL Q5M PRN #30 tab.subl PRN Reason: Cardiac/Chest Pain Transmission Status: Pending to [facility] Primary Care Physician: Ryan Sheridan MD [Primary Care Provider] - Please follow up with your Primary Care Physician in: 1-2 weeks Test Results: Test results from this visit will be discussed in further detail at your follow-up appointment, if applicable. Please Follow Up With: Juan Ramon Duran MD When: 2-3 weeks Please Follow Up With: Andrés Barron DO When: TuesdayMarch 02,. 2020 @10:15. To see DANN Mast for assessment for ELAL Proposed Discharge Date: 02/21/21
--- NOTE | 2021-02-21 14:20 | DS.PCM_ITS ---
Discharge Date and Diagnosis - Problem List Patient Problems: Active and Suspected Problems (Last Updated 02/19/21 @ 09:12 by Joycelyn Barnard) Atrial fibrillation with RVR (Acute) CHF (congestive heart failure) (Acute) Date of Admission: 02/17/21 Date of Discharge: 02/21/21 - Primary Discharge Diagnosis Acute Problems: Active Problems (Last Updated 02/19/21 @ 09:12 by Joycelyn Barnard) Atrial fibrillation with RVR (Acute) CHF (congestive heart failure) (Acute) with reduced EF nonischemic cardiomyopathy - Secondary Discharge Diagnosis Chronic Problems: Chronic Problems (Last Updated 02/19/21 @ 09:12 by Joycelyn Barnard) HTN (hypertension) (Chronic) Hospital Course and Treatment Imaging Results: Diagnostic Data Chest X-Ray 02/17/21 10:45 IMPRESSION: Normal x-ray examination of the chest. Electronically Signed: Candido Kwok MD at 11:07 EDT , Service support , Echocardiogram 02/17/21 12:18 Interpretation Summary The study was technically difficult. Contrast injection was performed. Moderately dilated left ventricle. Severe global left ventricular systolic dysfunction. The estimated ejection fraction is 20 %. Moderate concentric left ventricular hypertrophy. The left atrium is moderately enlarged. Mild papillary muscle dysfunction of the mitral valve. Mild (1+) eccentric mitral valve insufficiency. Mild tricuspid valve insufficiency. Trivial pulmonic valve insufficiency. Right ventricular systolic pressure estimated to be 36 mmHg. Unable to assess diastolic dysfunction. Ordering Physician: Bella Quinones Referring Physician: Ryan Sheridan Performed By: Leroy Shabazz R[facility] cardiology- Dr Duran Operations: None Procedures: 2-D Echocardiogram, Cardiac catheterization Summary of Care Provided: The patient is a 40 year old M [facility] no significant PMH. He was admitted from his PCP;s office with a complaint of afib with RVR and cncerns for heart failure. He started having leg swelling over the last 2 days, and had also been having difficulty sleeping flat for the past few months. He had also had a chronic cough for the last 18 months. He has allergies to aspirin. His heart rate was in the 120s, so he went to see his PCP today and was sent in to the ED. He hasnt had such symptoms in the past. He has never been diagnosed with heart failure or A. fib. Review of systems otherwise negative. Vitals in the ED showed pulse rate of 104 with respiratory rate of 25 and blood pressure of 143/110. Temperature was 98.2 Fahrenheit. Chemistry was unremarkable with initial troponin of 0.018 and BNP of 245.6. CBC showed WBC of 12 and hemoglobin of 15.5 was otherwise unremarkable. Chest x-ray showed no acute cardiopulmonary process and EKG showed A. fib with RVR. He was admitted to be managed for new onset A. fib with RVR and probable heart failure. He was started on heparin drip and therapeutic Lovenox. He was also started on Cardizem drip due to heart rate not been well controlled. Cardiology was consulted. 2D echo showed EF of 20% with moderately dilated left ventricle and moderate concentric left ventricular hypertrophy with moderately enlarged left atrium and RVSP estimated to be 36 mmHg; unable to assess diastolic dysfunction. Is concerned that patient probably had obstructive sleep apnea as he had a history of snoring and apneic episodes. This was likely contributing to his A. fib with RVR. This was discussed with pulmonology and patient was scheduled for outpatient follow-up with pulmonology on Tuesday, 02 March 2021 at 10:15 AM. Cardiac cath showed angiographically normal coronary arteries and an EF of 20% as well as global left ventricular systolic dysfunction which was severe. Plan was therefore, conservative management. Patient was transitioned to Eliquis and put on Entresto as well as Lasix and statin as well as Imdur. Patient remained stable and he converted to normal sinus rhythm. He was discharged home on 02/21/2021. He is follow-up with his primary care doctor and cardiology as well as pulmonology. He was counseled about dietary modification and weight loss to help with his symptoms. Patient seen and examined prior to discharge. He had no complaints. Review systems otherwise negative. Labs and vitals reviewed. Home medication reviewed and reconciled. O/E: Vital Signs Temp Pulse Resp BP Pulse Ox 97.9 F 116 H 18 130/62 H 94 02/21/21 09:02 02/21/21 09:02 02/21/21 09:02 02/21/21 09:02 02/21/21 09:02 General: Alert, Oriented x3, Cooperative, No apparent distress, - - Super morbid obesity HEENT: Atraumatic, PERRLA, EOMI, Normocephalic Oral: Dry Mucosa Neck: Supple, No JVD, Negative Carotid Bruits Lungs: Diminished - diminished breath sounds bibasally, no wheezes or crackles. Cardiovascular: now in si Abdomen: Bowel Sounds Present, Soft, Non Tender, Obese Extremities: No edema, Capillary Refill Less than 3 Seconds Skin: No rashes, No breakdown Musculoskeletal: No Tenderness to Palpation of Joints or Extremities Lymphatic: No Cervical, Supraclavicular, or Inguinal Adenopathy Neurological: Cranial nerves II-XII grossly intact, Neuro grossly intact, Motor Exam 5/5 strength throughout Psych/Mental Status: Normal Affect, Appropriate, Alert and oriented to time, place, person, mood and affect Plan is for discharge home. Patient Problems: Active and Suspected Problems (Last Updated 02/19/21 @ 09:12 by Joycelyn Barnard) Atrial fibrillation with RVR (Acute) CHF (congestive heart failure) (Acute) - Physical Exam Vitals/I&O's: Vital Signs Temp Pulse Resp BP Pulse Ox 97.9 F 116 H 18 130/62 H 94 02/21/21 09:02 02/21/21 09:02 02/21/21 09:02 02/21/21 09:02 02/21/21 09:02 Oxygen Flow Rate (L/min) 2 Oxygen Delivery Method Room Air Weight: 321 lb 3.416 oz Body Mass Index (BMI) 48.1 Intake and Output for Last 24 Hours 02/19/21 02/20/21 02/21/21 23:59 23:59 23:59 Intake Total 1166.50 / 1176.50 84.17 / 204.17 920 / 920 Output Total 2950 / 2950 900 / 900 Balance -1783.50 / -1773.50 -815.83 / -695.83 920 / 920 Laboratory Results 02/21/21 06:09: WBC 10.9, RBC 6.98 H, Hgb 17.9 H, Hct 56.7 H, MCV 81.2, MCH 25.6 L, MCHC 31.6 L, RDW Std Deviation 44.6 H, RDW Coeff of Cecilia 17.1 H, Plt Count 303, MPV 9.8, Immature Gran % (Auto) 0.300, Neut % (Auto) 73.6 H, Lymph % (Auto) 13.7 L, Door % (Auto) 10.0, Eos % (Auto) 1.8, Baso % (Auto) 0.6, Absolute Neuts (auto) 8.0 H, Absolute Lymphs (auto) 1.49, Nucleated RBC % 0 02/21/21 06:09: Sodium 137, Potassium 3.6, Chloride 103, Carbon Dioxide 29.0, Anion Gap 5, BUN 15, Creatinine 1.17, Estim Creat Clear Calc 88.49, Est GFR (MDRD) Af Amer 88, Est GFR (MDRD) Non-Af 73, BUN/Creatinine Ratio 12.8, Glucose 95, Calcium 9.4 Current Medications Acetaminophen (Acetaminophen 325 Mg Tablet) 650 mg PO Q6H PRN PRN PRN Reason: Pain Score 1-3 /Temp>100.7 Apixaban (Apixaban 5 Mg Tablet) 5 mg PO BID [facility] Last Admin: 02/21/21 09:04 Dose: 5 mg Documented by: Atorvastatin Calcium (Atorvastatin Calcium 20 Mg Tablet) 20 mg PO QHS [facility] Last Admin: 02/20/21 21:51 Dose: 20 mg Documented by: [facility]il[facility] ([facility]5 Mg [facility] Admin: 02/21/21 09:04 Dose: 12.5 mg Documented by: Digoxin (Digoxin 250 Mcg Tablet) 250 mcg PO DAILY [facility] Last Admin: 02/21/21 09:04 Dose: 250 mcg Documented by: Furosemide (Furosemide 40 Mg Tablet) 40 mg PO BID@1000,1800 [facility] Last Admin: 02/21/21 09:04 Dose: 40 mg Documented by: Sodium Chloride () 250 mls @ 15 mls/hr IV .[id number] PRN PRN Reason: Saline Flush Sodium Chloride () 250 mls @ 15 mls/hr IV .[id number] PRN PRN Reason: Additional IVPB Infusion Sodium Chloride () 1,000 mls @ 0 mls/hr IV .Q0M [facility] Isosorbide Mononitrate (Isosorbide Mononitrate 30 Mg Tablet) 30 mg PO DAILY [facility] Last Admin: 02/21/21 09:04 Dose: 30 mg Documented by: Nitroglycerin (Nitroglycerin (Inpatient Use) 0.4 Mg Tab.Subl) 0.4 mg SL Q5M PRN PRN Reason: CARDIAC/CHEST PAIN Ondansetron HCl (Ondansetron 4 Mg/2 Ml Vial) 4 mg IV Q8H PRN PRN PRN Reason: NAUSEA/VOMITING Sacubitril/Valsartan (Sacubitril/Valsartan 24/26 Mg Tablet) 1 each PO BID [facility] Last Admin: 02/21/21 09:04 Dose: 1 each Documented by: Sodium Chloride (0.9% Saline Lock 10 Ml Syringe) 10 - 40 ml IV UD PRN PRN Reason: SALINE FLUSH Last Admin: 02/19/21 17:11 Dose: 10 ml Documented by: Discharge Diet: Low fat/ Low Cholesterol Discharge Activity: Return to Normal Activity Weight Bearing Status: Weight bearing as tolerated Call your doctor if you observe: Fever of 101 or Higher, Shortness of breath, Dizziness, Swelling in the ankles, Increased palpitations (irregular heartbeat) Home Medications: Medications to take at Discharge Apixaban [Eliquis] 5 mg PO BID #60 tablet 02/21/21 Atorvastatin Calcium [Lipitor] 20 mg PO QHS #30 tablet 02/21/21 Carvedilol [Coreg (Beta Zoë)] 12.5 mg PO BIDCM #60 tablet 02/21/21 Digoxin [Lanoxin] 250 mcg PO DAILY #30 tablet 02/21/21 Furosemide [Lasix] 40 mg PO BID@1000,1800 #60 tablet 02/21/21 Isosorbide Mononitrate [Imdur] 30 mg PO DAILY #30 tablet 02/21/21 Nitroglycerin (INPATIENT USE) [Nitrostat] 0.4 mg SL Q5M PRN #30 tab.subl 02/21/21 Potassium Chloride Oral Tablet [K-Dur] 20 meq PO DAILY #30 tab 02/21/21 Sacubitril/Valsartan 24/26 mg [Entresto 24 mg-26 mg Tablet] 1 each PO BID #60 tablet 02/21/21 Following Prescriptions Were Given to Patient: Carvedilol [Coreg (Beta Zoë)] 12.5 mg PO BIDCM #60 tablet Transmission Status: Pending to [facility] Apixaban [Eliquis] 5 mg PO BID #60 tablet Transmission Status: Pending to [facility] Sacubitril/Valsartan 24/26 mg [Entresto 24 mg-26 mg Tablet] 1 each PO BID #60 tablet Transmission Status: Pending to [facility] Isosorbide Mononitrate [Imdur] 30 mg PO DAILY #30 tablet Transmission Status: Pending to [facility] Potassium Chloride Oral Tablet [K-Dur] 20 meq PO DAILY #30 tab Transmission Status: Pending to [facility] Digoxin [Lanoxin] 250 mcg PO DAILY #30 tablet Transmission Status: Pending to [facility] Furosemide [Lasix] 40 mg PO BID@1000,1800 #60 tablet Transmission Status: Pending to [facility] Atorvastatin Calcium [Lipitor] 20 mg PO QHS #30 tablet Transmission Status: Pending to [facility] Nitroglycerin (INPATIENT USE) [Nitrostat] 0.4 mg SL Q5M PRN #30 tab.subl PRN Reason: Cardiac/Chest Pain Transmission Status: Pending to [facility] Primary Care Physician: Ryan Sheridan MD [Primary Care Provider] - Please follow up with your Primary Care Physician in: 1-2 weeks Please Follow Up With: Juan Ramon Duran MD When: 2-3 weeks Please Follow Up With: Andrés Barron DO When: TuesdayMarch 02,. 2020 @10:15. To see DANN Mast for assessment for ELLA Patient Instructions: What Is Atrial Flutter/Atrial Fibrillation?, Heart Failure, ED Atrial Flutter Disposition: Home Minutes spent on discharge:: 45 Patient Condition:: Stable Medical Necessity - Tobacco Use Smoking Status: Current some day smoker Tobacco Use: Cigarettes Meaningful Use Info Meaningful Use Diagnoses (Choose all that apply): CHF - CHF BRANDON/ARB ordered at discharge?: Yes Documented LVEF (%): 20 Inpatient E&M: 56179 Disch Hosp
[2021-02-21 14:25] VITALS: BP 103/66; PULSE 102; RESP 18; TEMP 36.7; O2SAT 98
--- NOTE | 2021-02-23 17:09 | CASEMGMT ---
Notification received from [facility] that pt's entresto requires a prior authorization. Calls placed to pt, pt's pharmacy ([facility]) and to Dr. Duran's nurse Joycelyn. Pt had not picked up or self-payed for the medication. Franklyn had submitted for the prior authorization but required additional information from [facility]/Dr. Quinones. Notified Joycelyn that pt did not have the medication pending prior authorization completion. Prior authorization information submitted to [employer] and approval received. [employer] case [id number]. Notified Joycelyn, Franklyn, and pt. Joycelyn also called discount card information into [employer]. Pt states he will pick out hand the medication. Pt states he has been feeling well since discharge. Denies any difficulty with SOB or edema. States he did pickup all of the other medications and that his was making his appointments today. Confirmed with Joycelyn at Dr Duran's office that pt has an appointment on March 11. Pt denies any other concerns or questions. Marlon Martinez RN CM
== END 2021-02-21 14:42 | disposition home or self-care (01) | DRG 286 ==
LOC: ED 11:31 → PCU 12:42
PROVIDERS: Nurse Practitioner Family; Admitting Provider Student in an Organized Health Care Education/Training Program; Emergency Provider Emergency Medicine; PCP Family Medicine; Visit Provider Student in an Organized Health Care Education/Training Program
DX: I48.91 Unspecified atrial fibrillation (principal); I50.21 Acute systolic (congestive) heart failure; Z68.43 Body mass index [BMI] 50.0-59.9, adult; I42.8 Other cardiomyopathies; E66.9 Obesity, unspecified; I11.0 Hypertensive heart disease with heart failure; G47.33 Obstructive sleep apnea (adult) (pediatric); F17.210 Nicotine dependence, cigarettes, uncomplicated; Z88.6 Allergy status to analgesic agent; Z66 Do not resuscitate; I25.10 Atherosclerotic heart disease of native coronary artery without angina pectoris; Z79.01 Long term (current) use of anticoagulants
CPT/HCPCS: 36415; 71045; 80048; 80061; 80076; 83735; 83880; 84443; 84484; 85025; 85610; 85730; 87426; 93005; 93306; 93458; 93567; 97802; 97803; 99152; 99153; 99285; 99406; J7030; Q9957; Q9967; A4216; C1769; C1894; C8929; J1940

== ENCOUNTER → 2021-02-25 10:41 | Outpatient (CLI) | payer BC, SELFPAY ==
[2021-02-17 12:35] VITALS: BMI 48.1
[2021-02-25 11:50] LABS: Anion Gap 5 (5-15); BUN 16 mg/dL (7-18); BUN/Creat Ratio 11.6 RATIO (10-20); Calcium,Total 9.6 mg/dL (8.5-10.1); Chloride 103 mmol/L (98-107); Creatinine, Serum 1.38 mg/dL (0.70-1.30); EST Glomerular Filtration Rate 60 mL/min (>60); Est Glom Filt Rate - Afr Amer 73 mL/min (>60); Glucose 130 mg/dL (74-106); Potassium 4.2 mmol/L (3.5-5.1); Sodium Level 137 mmol/L (136-145)
== END ==
PROVIDERS: PCP Family Medicine; Referring Provider Internal Medicine Cardiovascular Disease; Visit Provider Internal Medicine Cardiovascular Disease
DX: I11.0 Hypertensive heart disease with heart failure (principal); I50.9 Heart failure, unspecified; I48.91 Unspecified atrial fibrillation
CPT/HCPCS: 36415; 80048

== ENCOUNTER → 2021-03-05 10:25 | Outpatient (CLI) | payer BC, SELFPAY ==
[2021-03-02 10:15] VITALS: BMI 45.5
[2021-03-05 11:32] LABS: Anion Gap 3 (5-15); BUN 13 mg/dL (7-18); BUN/Creat Ratio 10.2 RATIO (10-20); Calcium,Total 9.7 mg/dL (8.5-10.1); Chloride 103 mmol/L (98-107); Creatinine, Serum 1.27 mg/dL (0.70-1.30); EST Glomerular Filtration Rate 66 mL/min (>60); Est Glom Filt Rate - Afr Amer 80 mL/min (>60); Glucose 106 mg/dL (74-106); Sodium Level 139 mmol/L (136-145)
== END ==
PROVIDERS: PCP Family Medicine; Referring Provider Internal Medicine Cardiovascular Disease; Visit Provider Internal Medicine Cardiovascular Disease
DX: I48.91 Unspecified atrial fibrillation (principal); I11.0 Hypertensive heart disease with heart failure; I50.9 Heart failure, unspecified
CPT/HCPCS: 36415; 80048

== ENCOUNTER → 2021-03-06 20:00 | Outpatient (CLI) | payer BC, SELFPAY ==
[2021-03-02 10:15] VITALS: BMI 45.5
== END ==
PROVIDERS: PCP Family Medicine; Visit Provider Nurse Practitioner Acute Care
DX: G47.33 Obstructive sleep apnea (adult) (pediatric) (principal)
CPT/HCPCS: 95811

== ENCOUNTER → 2021-03-16 08:57 | Outpatient (CLI) | payer BC, SELFPAY ==
[2021-03-11 13:03] VITALS: BMI 45.4
== END ==
PROVIDERS: PCP Family Medicine; Visit Provider Nurse Practitioner Acute Care
DX: Z46.89 Encounter for fitting and adjustment of other specified devices (principal)

== ENCOUNTER 2021-03-31 10:42 | Day surgery (SDC) | payer BC, SELFPAY ==
[2021-03-11 13:03] VITALS: BMI 45.4
[2021-03-30 07:59] VITALS: BMI 45.4
--- NOTE | 2021-03-31 07:47 | HP.PCM_ITS ---
History and Physical [facility] [address] [place], [place] [id number] OFFICE VISITDate of Service: 03/11/21 MR#:[id number]: SELENA SCHAFFER [facility] #:[id number]:[id number] Provider: LIGIA GonzalezAge/Sex: 41/M [facility] HPI <LIGIA Pascal NP - Last Filed: 03/13/21 08:12> HPI History of Present Illness Details: This is a 41-year-old male presents the office today for a cardiovascular outpatient follow-up. He has a history of atrial fibrillation, nonischemic congestive heart failure, hypertension, and obstructive sleep apnea. Patient was admitted to [facility] in February 2021 for worsening shortness of breath. In the emergency department he was noted to be in atrial fibrillation and noted symptoms of congestive heart failure. He received IV diltiazem and IV diuretic therapy. He underwent echocardiogram on 02/17/2021 that showed an ejection fraction of 20% and moderate enlarged left atrium. He had mild mitral valve insufficiency and an RVSP of 36 mmHg. He proceeded with a heart catheterization on 02/19/2021 that showed ejection fraction 20% and angiographically normal coronary arteries. He was started on rate limiting medication, CHF medication, and anticoagulation and discharged for outpatient follow-up. He denies chest, arm, jaw, or neck discomfort. His exercise tolerance is stable. He denies symptoms of CHF, palpitations, lightheadedness, dizziness, near syncope, or syncopal episodes. He denies edema or claudication issues. He denies orthopnea, PND, fever, chills, blood in urine, blood in stool, myalgia, or unexplainable fatigue. Intake <LIGIA Pascal NP - Last Filed: 03/13/21 08:12> Vital Signs 03/11/21 12:51 03/11/21 13:03 Height 5 ft 10 in Weight: 317 lb BMI 45.5 45.4 BP 106/58 L Blood Pressure Location Lt brachial Position Sitting Respiration 18 Pulse 60 Pulse Source Auscultation Intake Visit Reasons: A-fib w/ RVR Allergies aspirin Allergy (Verified 03/11/21 13:05) Shortness of breath Penicillins Allergy (Verified 03/11/21 13:05) Anaphylaxis Sulfa (Sulfonamide Antibiotics) Allergy (Verified 03/11/21 13:05) PT UNSURE OF REACTION Medications apixaban 5 mg PO BID #60 tablet 02/21/21 [Rx Confirmed 03/11/21] atorvastatin 20 mg PO QHS #30 tablet 02/21/21 [Rx Confirmed 03/11/21] carvedilol 12.5 mg PO BIDCM #60 tablet 02/21/21 [Rx Confirmed 03/11/21] digoxin 250 mcg PO DAILY #30 tablet 02/21/21 [Rx Confirmed 03/11/21] furosemide 40 mg PO BID@1000,1800 #60 tablet 02/21/21 [Rx Confirmed 03/11/21] isosorbide mononitrate 30 mg PO DAILY #30 tablet 02/21/21 [Rx Confirmed 03/11/21] nitroglycerin 0.4 mg SL Q5M PRN #30 tab.subl 02/21/21 [Rx Confirmed 03/11/21] potassium chloride 20 meq PO DAILY #30 tab 02/21/21 [Rx Confirmed 03/11/21] sacubitril 24 mg-valsartan 26 mg tablet 1 tab PO BID #60 tablet 02/25/21 [Rx Confirmed 03/11/21] <Jennifer Sanchez - Last Filed: 03/11/21 14:25> Vital Signs 03/11/21 12:51 03/11/21 13:03 Height 5 ft 10 in Weight: 317 lb BMI 45.5 45.4 BP 106/58 L Blood Pressure Location Lt brachial Position Sitting Respiration 18 Pulse 60 Pulse Source Auscultation Intake Associate Creative Director Required: No Accompanied by: Is patient in pain?: No Ejection fraction %: 20 to 24 PFSH <Ryan Gonzalez NP, MATH PROFESSOR-C - Last Filed: 03/13/21 08:12> Medical History (Updated 03/11/21 @ 13:44 by Ryan Gonzalez NP, MATH PROFESSOR-C) Atrial fibrillation with RVR CHF (congestive heart failure) HTN (hypertension) Surgical History (Updated 03/11/21 @ 13:08 by Jennifer Sanchez) History of left heart catheterization (LHC) (~02/19/21) History of tonsillectomy Family History (Updated 03/11/21 @ 13:09 by Jennifer Sanchez) Grandfather Myocardial infarction Grandfather Cancer Pancreatic Social History (Updated 03/11/21 @ 13:10 by Jennifer Sanchez) Smoking Status: Light Smoker (<10/day) alcohol intake: never substance use type: does not use caffeine: No <Jennifer Sanchez - Last Filed: 03/11/21 14:25> Const Const: Negative for fatigue, weakness, headache(s), frequent falls, difficulty sleeping or excessive sweating Eyes Eyes: Negative for loss of peripheral vision, transient loss of vision, blurry vision, double vision or tunnel vision ENT ENT: Negative for headache(s), dizziness, Nosebleed/epistaxis or balance problems Cardio Chest Pain: No Palpitations: No Edema: None Muscle aches with walking: None Resp Respiratory: Negative for SOB with activity, SOB at rest, SOB orthopnea\SOB lying down, Cough or paroxysmal nocturnal dyspnea GI GI: Negative nausea, vomiting, heartburn or black,tarry stools : Negative for hematuria Musc Musc: Negative for muscle aches/ myalgia, muscle weakness, joint pain or balance problems Skin Skin: Negative non-healing lesions, rash or unusual bruising Neuro Neuro: Negative for dizziness, lightheadedness, near syncope, syncope, frequent falls, headache(s), weakness, blurry vision, double vision or lack of coordination Adonis Hematologic/Lymphatic: Negative for easy bleeding or easy bruising Endo Endo: Negative for fatigue, excessive sweating or increased thirst/drinking Psych Psych: Negative for anxiety or depression Allergy Allergy/Immunology: Negative for hives and Negative for rash Cardiology Exam <Ryan Gonzalez MATH PROFESSOR, DANN-C - Last Filed: 03/13/21 08:12> Const Appearance: cooperative, healthy appearing, comfortable and no acute distress Nutritional Appearance: well nourished and obese Orientation: alert, awake and oriented x3 Head Head: normal to inspection Ears: hearing grossly normal bilaterally Nose: external nose normal Face and Sinus: face symmetric Mouth: oral mucosae normal Eyes General: appearance normal, both eyes and all related structures Eyelids: eyelids normal EOM: EOM intact bilaterally Neck Neck: normal visual inspection and no JVD Carotids: normal carotid upstroke Chest Chest inspection: normal inspection of the chest, symmetric chest movement and normal respiratory effort; Negative cough Auscultation: Bilateral: Clear to Auscultation Cardio Rate: regular rate Rhythm: irregular rhythm Heart sounds: S1 normal and S2 normal; Negative rub, gallop or murmur GI GI: normal to inspection and obese Neuro General: patient alert, patient awake, patient oriented x3 and CN's II-XI intact bilaterally Skin Skin: no rashes or lesions noted Extremities Pulses: Normal: Right Posterior Tibial Pulse, Left Posterior Tibial Pulse, Right Radial Pulse and Left Radial Pulse Lower Extremity Edema: None: Bilateral Psych Psychological: normal affect Coding Level of Care Code Off vis,est,level 4 Diagnoses Paroxysmal atrial fibrillation I48.0 CHF (congestive heart failure) I50.9 Heart failure chronicity: unspecified Heart failure type: unspecified HTN (hypertension) I10 Hypertension type: unspecified Coding Level of Care Code Off vis,est,level 4 Diagnoses Paroxysmal atrial fibrillation I48.0 CHF (congestive heart failure) I50.9 Heart failure chronicity: unspecified Heart failure type: unspecified HTN (hypertension) I10 Hypertension type: unspecified Supplemental Info <LIGIA Pascal NP - Last Filed: 03/13/21 08:12> Supplemental Information Echocardiogram from 02/17/2021: Interpretation Summary The study was technically difficult. Contrast injection was performed. Moderately dilated left ventricle. Severe global left ventricular systolic dysfunction. The estimated ejection fraction is 20 %. Moderate concentric left ventricular hypertrophy. The left atrium is moderately enlarged. Mild papillary muscle dysfunction of the mitral valve. Mild (1+) eccentric mitral valve insufficiency. Mild tricuspid valve insufficiency. Trivial pulmonic valve insufficiency. Right ventricular systolic pressure estimated to be 36 mmHg. Unable to assess diastolic dysfunction. 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 RECOMMENDATIONS Risk factor modification Medical therapy Consider further evaluation of the origin of the RCA c/w the LCA with Cardiac CTA if clinically indicated. CORONARY ANGIOGRAPHY DOMINANCE: Right Dominant LEFT HEART ASSESSMENT Left Ventricular Ejection Fraction: by LV Gram 20 % Global Hypokinesis - Severe Elevated Left Ventricular End Diastolic Pressure LVEDP: 34 mmHg LEFT MAIN: Angiographically normal LEFT ANTERIOR DESCENDING ARTERY: Angiographically normal CIRCUMFLEX ARTERY: Angiographically normal RIGHT CORONARY ARTERY: Angiographically normal AORTIC ROOT: Angiographically normal COMPLICATIONS No Complications Labs: LDL Cholesterol 101 mg/dL (0-130) HDL Cholesterol 27 mg/dL (40-) L Triglycerides 99 mg/dL (-199) VLDL Cholesterol 20 mg/dL (5-40) Diagnostics: Electrocardiogram Echocardiogram Cardiac Catheterization Chest X-Ray Pulmonary: No Data to Display Assessment and Plan <Ryan Lovell Carlos QUIGLEY, LIGIA - Last Filed: 03/13/21 08:12> Assessment and Plan (1) Paroxysmal atrial fibrillation: Status: Acute Plan: Patient's EKG in office continues to show atrial fibrillation. Heart rate is now to be 82 beats minute, QTC of 382, QRS 102. He has been on oral anticoagulation consistently since his recent hospital visit. He will proceed with cardioversion in attempt to maintain sinus rhythm. Hopefully, over time with maintaining sinus rhythm, his ejection fraction improves. (2) CHF (congestive heart failure): Status: Acute Qualifiers: Heart failure chronicity: unspecified Heart failure type: unspecified Qualified Code(s): I50.9 - Heart failure, unspecified Plan: His echocardiogram from 02/17/2021 showed ejection fraction 20%, moderately dilated ventricle, moderate concentric LVH, and moderately enlarged left atrium. He is currently on carvedilol, digoxin, isosorbide, Entresto, and Lasix therapy. Due to his heart rate and blood pressure being on the lower side of expected range, we will not advance such medications. He will proceed with cardioversion and repeat echocardiogram in approximately 3 months to evaluate ejection fraction. If ejection fraction is 35% or below we will have to consider preventative ICD including subcutaneous. If ejection fractions means reduced, we could consider trialing higher dose of Entresto therapy. Also depending on long-term progress, we can consider tertiary care evaluation for more advanced congestive heart failure treatments. It is encouraging that he is symptomatically feeling well and clinically does not appear to be in a fluid volume overload state. He appears to be [place] [employer] functional class I, but during his hospitalization he appeared to be [place] [employer] functional class III. (3) HTN (hypertension): Status: Chronic Qualifiers: Hypertension type: unspecified Qualified Code(s): I10 - Essential (primary) hypertension Plan: Patient's blood pressure is well-controlled. We will continue to monitor. We will not make any medication regimen changes. Plan Details Follow Up: 3 Months (MATH PROFESSOR/PA) 10 Months (PFM) 03/13/21 0812<Electronically signed by Ryan Gonzalez MATH PROFESSOR MATH PROFESSOR-C>Date Ryan Gonzalez MATH PROFESSOR MATH PROFESSOR-C Cosigner Signature:Date (if applicable) CC: Dr. Ryan Sheridan MD ~ Addendum: 03-31-2021: I have re-examined the patient. There are no clinical changes since date of exam.
--- NOTE | 2021-03-31 12:59 | PCM.OP.PRO ---
Procedure Report Date of Procedure: 03/31/21 CONSCIOUS SEDATION REPORT DATE OF SERVICE: March 31, 2021 BRIEF HISTORY OF PRESENT ILLNESS: The patient is a 41-year-old male who presented to [facility] for an elective outpatient cardioversion due to underlying atrial fibrillation. The patient's last surface echocardiogram revealed an ejection fraction of approximately 20%. He is currently anticoagulated on Eliquis. The patient denies any prior anesthetic complications. He does have a known history of obstructive sleep apnea and reports that he has been on nocturnal Pap therapy now for approximately 2 weeks. PHYSICAL EXAMINATION: VITAL SIGNS: Reviewed and were acceptable. GENERAL: The patient is an obese male, in no apparent distress, speaking in full sentences. HEENT: Normocephalic, atraumatic. Mucous membranes are moist and pink. Good mouth opening noted. Trachea is midline. CHEST: S1, S2 irregularly irregular. No murmurs, rubs or gallops were noted. LUNGS: Clear to auscultation bilaterally without appreciable wheezes, rales or rhonchi. ABDOMEN: Soft, nontender, nondistended. Positive bowel sounds. EXTREMITIES: There is no clubbing, cyanosis or edema. ASA Class: II DESCRIPTION OF PROCEDURE: After confirmation of informed consent, the patient's anesthesia plan was reviewed in detail. Etomidate was chosen. Risks and benefits were reviewed and the patient agreed to proceed. At 1224, the patient was given his first bolus of etomidate. In total, the patient required 14 mg of etomidate throughout the entire procedure to facilitate two separate attempts at cardioversion, the first at 200 J and the second at 300 J. Unfortunately, neither were successful in achieving normal sinus rhythm. The patient was monitored until 1236, at which time he reached his baseline mental status and function. The patient tolerated the procedure well. COMPLICATIONS: None ESTIMATED BLOOD LOSS: None RECOMMENDATIONS: Okay to recover in usual fashion. Procedures Pulmonary CF Procedures Pulmonary: [id number] Con Sedation
--- NOTE | 2021-03-31 13:00 | CARDIOVERS_ITS ---
Cardioversion Cardioversion: Date: 03-31-2021 Procedure: Synchronized Biphasic DC Cardioversion Indications: Atrial fibrillation Consent: Per the Patient Anesthesia: per Dr. Barron of pulmonology and critical care medicine with etomidate 14 mg IV push total Procedure: Synchronized Biphasic DC Cardioversion: 200 J x 1: Result: Atrial fibrillation Synchronized biphasic DC cardioversion: 300 J x 1: Result: Atrial fibrillation Complications: no apparent complications This note was generated with Nvelopedation software. It may contain incorrect words, spelling, and punctuation that were not noted in checking the note before signing.
== END 2021-03-31 13:34 | disposition home or self-care (01) ==
LOC: CLSP 10:43
PROVIDERS: PCP Family Medicine; Referring Provider Internal Medicine Cardiovascular Disease; Visit Provider Internal Medicine Cardiovascular Disease
DX: I48.0 Paroxysmal atrial fibrillation (principal); I50.9 Heart failure, unspecified; I11.0 Hypertensive heart disease with heart failure; G47.33 Obstructive sleep apnea (adult) (pediatric); E66.9 Obesity, unspecified; Z79.01 Long term (current) use of anticoagulants; F17.210 Nicotine dependence, cigarettes, uncomplicated; Z88.0 Allergy status to penicillin; Z88.2 Allergy status to sulfonamides
CPT/HCPCS: 92960; 93005; J7040

== ENCOUNTER → 2021-07-01 07:34 | Outpatient (CLI) | payer BC, SELFPAY ==
[2021-06-05 13:52] VITALS: BMI 44.0
--- NOTE | 2021-07-01 07:35 | ECHOL_ITS ---
Reason For Study: CHF Procedure This was a limited 2D transthoracic echocardiogram. Limited views were obtained. Exam performed in department. Left Ventricle Normal LV size. Mild concentric left ventricular hypertrophy. Left ventricular systolic function is normal. The estimated ejection fraction is 55 %. Unable to assess diastolic dysfunction. No regional wall motion abnormalities noted. Right Ventricle Normal RV size. Normal systolic function. Atria The left atrium is mildly enlarged. Normal right atrium. No doppler evidence for ASD. Mitral Valve There is no mitral annular calcification. Normal mitral valve. Tricuspid Valve Normal tricuspid valve. Aortic Valve Trisinus/trileaflet aortic valve. Normal aortic valve. Pulmonic Valve The pulmonic valve is not well visualized. Great Vessels Borderline enlarged aortic root. Pericardium/Pleural No pericardial effusion. MMode/2D Measurements & Calculations LVIDd: 4.6 cm IVSd: 1.3 cm Ao root diam: 3.9 cm LVIDs: 3.2 cm LVPWd: 1.3 cm FS: 31.8 % LAV(MOD-bp): 71.1 ml LVAd ap4: 28.2 cm2 LVAd ap2: 32.4 cm2 LAV(MOD-bp) Indexed: 29.7 ml/m2 LVLd ap4: 8.0 cm LVLd ap2: 9.1 cm LAV(MOD-sp2): 61.0 ml EDV(MOD-sp4): 79.9 ml EDV(MOD-sp2): 98.8 ml LAV(MOD-sp4): 75.1 ml EDV(sp4-el): 84.3 ml EDV(sp2-el): 97.5 ml LVAs ap4: 18.4 cm2 LVAs ap2: 19.5 cm2 LVLs ap4: 7.0 cm LVLs ap2: 7.5 cm ESV(MOD-sp4): 40.6 ml ESV(MOD-sp2): 45.2 ml ESV(sp4-el): 41.0 ml ESV(sp2-el): 43.2 ml EF(MOD-sp4): 49.2 % EF(MOD-sp2): 54.3 % EF(sp4-el): 51.3 % SV(MOD-sp4): 39.4 ml SV(MOD-sp2): 53.6 ml SV(sp4-el): 43.3 ml LA dimension(2D): 5.0 cm LA A4 area: 26.1 cm2 RA A4 area: 23.4 cm2 ECHO/Echo, Limited Study Interpretation Summary Limited views were obtained. Left ventricular systolic function is normal. The estimated ejection fraction is 55 %. Mild concentric left ventricular hypertrophy. The left atrium is mildly enlarged. Borderline enlarged aortic root. Unable to assess diastolic dysfunction. Ordering Physician: Corinna Gonzalez Referring Physician: CORINNA LANG Performed By: Delia Lockhart, EDUARDO, RVT
== END ==
PROVIDERS: PCP Family Medicine; Referring Provider Nurse Practitioner Family; Visit Provider Nurse Practitioner Family
DX: I48.0 Paroxysmal atrial fibrillation (principal); I11.0 Hypertensive heart disease with heart failure; I50.9 Heart failure, unspecified; G47.33 Obstructive sleep apnea (adult) (pediatric)
CPT/HCPCS: 93308

== ENCOUNTER → 2021-08-15 12:49 | Outpatient (CLI) | payer BC, SELFPAY ==
[2021-08-15 13:03] LABS: Absolute Lymphocyte Count 2.16 X10^3/uL (0.83-4.51); Absolute Neutrophil Count 9.3 X10^3/uL (2.0-7.7); Basophil# 0.05 X10^3/uL; Basophil% 0.4 % (0-1); Eosinophils% 0.8 % (0-5); Hematocrit 49.6 % (40-54); Hemoglobin 16.2 g/dL (13.0-16.5); Lymphocyte # 2.16 X10^3/ul (0.83-4.51); Lymphocyte % 17.3 % (19-41); Mean Corp Hgb Conc 32.7 g/dL (32-36); Mean Corpuscular Hgb 28.4 pg (27.0-32.0); Mean Platelet Vol. 9.7 fl (6.2-12.0); Monocyte# 0.84 X10^3/uL; Monocyte% 6.7 % (0-10); NRBC Flagged by Analyzer 0 % (0-5); Neutrophil # 9.28 X10^3/uL (2.7-7.7); Neutrophil % 74.6 % (47-70); Platelet Count 286 K/mm3 (150-450); RBC Distribution Width SD 41.2 fl (35.1-43.9); White Blood Count 12.5 K/mm3 (4.4-11.0)
== END ==
PROVIDERS: PCP Family Medicine; Referring Provider Nurse Practitioner Gerontology; Visit Provider Nurse Practitioner Gerontology
DX: K92.1 Melena (principal)
CPT/HCPCS: 36415; 85025

== ENCOUNTER → 2021-08-17 13:45 | Outpatient (CLI) | payer BC, SELFPAY | PROVIDERS: PCP Family Medicine; Referring Provider Family Medicine; Visit Provider Nurse Practitioner Gerontology | DX: K92.1 Melena (principal) | CPT/HCPCS: 82274 ==

== ENCOUNTER 2022-04-18 04:58 | Emergency (ER) | payer BC, SELFPAY ==
[2022-04-18 05:00] VITALS: BP 110/75; PULSE 97; RESP 18; TEMP 37; O2SAT 98; BMI 33.7
--- NOTE | 2022-04-18 06:11 | EX.ED.DYSGE1 ---
HPI History of Present Illness Chief Complaint: Other, Pain/Inj Informant: patient Onset/Context/Timing Onset: Days (4) Context: Gradual Onset Timing: Continuous Quality: Sharp Location: Right scrotum Worsened by: Palpation, movement Relieved by: Nothing Narrative Narrative: Patient presents with right-sided testicular and scrotal pain that has been getting worse over the last 4 days. Patient states he was scheduled to have surgery at a surgery center last Tuesday. Patient states it had to be rescheduled to [facility] and he is not scheduled until Tuesday for this. Patient states the pain has been getting progressively worse. Patient describes the pain as sharp. Patient states it is over the right side of his scrotum. Patient states it is worse with palpation and movement. Patient states nothing helps with it. Patient denies any fevers or chills. Patient denies any discharge or drainage. [facility] Medical History Atrial fibrillation with RVR CHF (congestive heart failure) HTN (hypertension) Home Medications nitroglycerin 0.4 mg SL Q5M PRN #30 tab.subl 02/21/21 [Rx Last Taken Unknown] apixaban 2.5 mg tablet 2.5 mg PO DAILY #90 tab 01/12/22 [Rx Last Taken Unknown] atorvastatin 20 mg tablet 20 mg PO QHS #90 tab 01/12/22 [Rx Last Taken Unknown] carvedilol 12.5 mg tablet 12.5 mg PO BIDCM #180 tab 01/12/22 [Rx Last Taken Unknown] digoxin 250 mcg (0.25 mg) tablet 250 mcg PO DAILY #90 tab 01/12/22 [Rx Last Taken Unknown] isosorbide mononitrate 30 mg tablet,extended release 24 hr 30 mg PO DAILY #90 tab 01/12/22 [Rx Last Taken Unknown] sacubitril 49 mg-valsartan 51 mg tablet 1 tab PO BID #180 tab 01/12/22 [Rx Last Taken Unknown] ciprofloxacin HCl 500 mg PO BID 04/18/22 [History Last Taken Unknown] hydrocodone-acetaminophen 1 tab PO Q6H PRN PRN 3 Days #10 tablet 04/18/22 [Rx Last Taken Unknown] Allergy/AdvReac Type Severity Reaction Status Date / Time aspirin Allergy Shortness Verified 01/12/22 15:41 of breath Penicillins Allergy Anaphylaxis Verified 01/12/22 15:41 Sulfa (Sulfonamide Allergy PT UNSURE Verified 01/12/22 15:41 Antibiotics) OF REACTION Family History Grandfather Myocardial infarction Grandfather Cancer Pancreatic Surgical History History of left heart catheterization (LHC) (~02/19/21) History of tonsillectomy Social History Smoking Status: Former smoker alcohol intake: never substance use type: does not use caffeine: No ROS ROS ED Constitutional Constitutional ED: Denies chills or fever(s) Eyes Eyes: Denies blurry vision or change in vision ENT ENT ED: Denies rhinorrhea or sore throat Cardiovascular Cardiovascular: Denies chest pain or palpitations Respiratory/Chest Respiratory/Chest: Denies cough or dyspnea Gastrointestinal Gastrointestinal: Denies nausea or vomiting Genitourinary Genitourinary ED: Denies dysuria or hematuria Musculoskeletal Musculoskeletal: Denies back pain or neck pain Integumentary Denies abscess or rash Neurologic Neurologic: Denies headache(s) or weakness Allergic/Immunologic Allergic/Immunologic ED: Denies mouth swelling or urticaria EXAM Physical Exam Const Vital Signs: 04/18/22 05:00 Temperature 98.6 F Temperature Source Oral Pulse Rate 97 Respiratory Rate 18 Blood Pressure 110/75 Blood Pressure Mean 86 Pulse Ox 98 Oxygen Delivery Method Room Air Positive well nourished and well developed General Appearance ED: well developed and NAD HEENT Reports moist mucous membranes Narrative: There is tenderness, edema, and induration of the right side of the scrotum. There is no active discharge or drainage. There is no testicular mass palpated. Neuro oriented x3, CN's II-XII intact bilaterally and no sensory deficits noted Sensorium / Orientation: alert Motor Exam: strength 5/5 throughout Psych mental status grossly normal MDM MDM MDM Narrative Medical decision making narrative: Patient was given a dose of Mesa here. Patient was given a prescription for a short course of Mesa. Patient was instructed to follow-up with his urology surgery as scheduled. Patient understood and was agreeable with the plan. All questions were answered. Discharge Plan Triage Chief Complaint: Other, Pain/Inj Other Complaint: Wound ED Provider: Hieu Byrd Dx/Rx/DC Orders Clinical Impression: Spermatocele, Acute pain in scrotum, Paroxysmal atrial fibrillation Instructions: ED Pain, Acute, Uncertain Cause Prescriptions: New hydrocodone-acetaminophen [hydrocodone-acetaminophen] 1 TABLET tablet 1 tab PO Q6H PRN PRN (Reason: Pain) 3 Days Qty: 10 RF: 0 No Action apixaban 2.5 mg tablet 2.5 mg PO DAILY Qty: 90 RF: 11 atorvastatin 20 mg tablet 20 mg PO QHS Qty: 90 RF: 3 carvedilol 12.5 mg tablet 12.5 mg PO BIDCM Qty: 180 RF: 3 digoxin 250 mcg (0.25 mg) tablet 250 mcg PO DAILY Qty: 90 RF: 3 isosorbide mononitrate 30 mg tablet extended release 24 hr 30 mg PO DAILY Qty: 90 RF: 3 Entresto 49-51 mg tablet 1 tab PO BID Qty: 180 RF: 3 nitroglycerin 0.4 MG tablet, sublingual 0.4 mg SL Q5M PRN (Reason: Cardiac/Chest Pain) Qty: 30 RF: 0 ciprofloxacin HCl 500 mg tablet 500 mg PO BID RF: 0 Primary Care Provider: Ryan Sheridan Referrals: Arturo Miranda MD [STAFF PHYSICIAN] - Keep Bryan appointment Ryan Sheridan MD [Primary Care Provider] - 5-7 Days Disposition Disposition: Home, Self Care
[2022-04-18] MEDS: HYDROcodone Bitartrate/Apap 5/325 Tablet PO (06:27)
[2022-04-18 06:30] VITALS: PULSE 82; RESP 18; O2SAT 97
== END 2022-04-18 06:31 | disposition home or self-care (01) ==
LOC: ED 06:29
PROVIDERS: Emergency Provider Emergency Medicine; PCP Family Medicine; Visit Provider Emergency Medicine
DX: N43.40 Spermatocele of epididymis, unspecified (principal); I11.0 Hypertensive heart disease with heart failure; I50.9 Heart failure, unspecified; I48.0 Paroxysmal atrial fibrillation; Z87.891 Personal history of nicotine dependence; Z79.01 Long term (current) use of anticoagulants; Z79.899 Other long term (current) drug therapy
CPT/HCPCS: 99283

== ENCOUNTER 2022-04-21 12:02 | Day surgery (SDC) | payer BC, SELFPAY ==
[2022-04-21] VITALS (7 sets, daily range): BP systolic 124–139; BP diastolic 81–107; PULSE 60–94; RESP 16–18; TEMP 36.3–36.8; O2SAT 93–100; BMI 33.8
[2022-04-21] MEDS: Lactated Ringers 1,000 ML 15 ML IV (13:07)
[2022-04-21] MEDS: Bupivacaine Mpf 0.5% 30 ML VIAL (14:38)
--- NOTE | 2022-04-21 14:44 | HP.PCM_ITS ---
HPI - General HPI Narrative SELENA SCHAFFER, is a 42 M who presents with an infected scrotal abscess plan for incision and drainage of abscess [facility] Medical History (Updated 04/19/22 @ 15:22 by Ammy Lynch) Atrial fibrillation with RVR Cardiology follow-up encounter CHF (congestive heart failure) CPAP (continuous positive airway pressure) dependence Former smoker High cholesterol History of cardioversion History of echocardiogram HTN (hypertension) Hypertension Home Medications nitroglycerin 0.4 mg SL Q5M PRN #30 tab.subl 02/21/21 [Rx Last Taken Unknown] apixaban 2.5 mg tablet 2.5 mg PO DAILY #90 tab 01/12/22 [Rx Last Taken 04/18/22] atorvastatin 20 mg tablet 20 mg PO QHS #90 tab 01/12/22 [Rx Last Taken Unknown] carvedilol 12.5 mg tablet 12.5 mg PO BIDCM #180 tab 01/12/22 [Rx Last Taken 04/21/22] digoxin 250 mcg (0.25 mg) tablet 250 mcg PO DAILY #90 tab 01/12/22 [Rx Last Taken 04/21/22] isosorbide mononitrate 30 mg tablet,extended release 24 hr 30 mg PO DAILY #90 tab 01/12/22 [Rx Last Taken 04/21/22] sacubitril 49 mg-valsartan 51 mg tablet 1 tab PO BID #180 tab 01/12/22 [Rx Last Taken 04/21/22] ciprofloxacin HCl 500 mg PO BID 04/18/22 [History Last Taken Unknown] hydrocodone-acetaminophen 1 tab PO Q6H PRN PRN 3 Days #10 tablet 04/18/22 [Rx Last Taken Unknown] ciprofloxacin HCl [Cipro] 500 mg PO BID #14 tab 04/21/22 [Rx Last Taken Unknown] Allergy/AdvReac Type Severity Reaction Status Date / Time aspirin Allergy Shortness Verified 04/21/22 12:22 of breath Penicillins Allergy Anaphylaxis Verified 04/21/22 12:22 Sulfa (Sulfonamide Allergy PT UNSURE Verified 04/21/22 12:22 Antibiotics) OF REACTION oxycodone AdvReac Vomiting Verified 04/21/22 12:29 Family History Grandfather Myocardial infarction Grandfather Cancer Pancreatic Surgical History History of left heart catheterization (LHC) (~02/19/21) History of tonsillectomy Social History Smoking Status: Former smoker alcohol intake: never substance use type: does not use caffeine: No Vital Signs Vital Signs Vital Signs: 04/21/22 12:25 Temperature 97.3 F L Temperature Source Temporal Pulse Rate 60 Respiratory Rate 18 Blood Pressure 124/83 H Blood Pressure Mean 96 Blood Pressure Source Monitor Blood Pressure Position Semi-Fowlers Blood Pressure Location Left Arm Pulse Ox 100 Oxygen Delivery Method Room Air Weight Weight: 110 kg Body Mass Index (BMI) 33.8
--- NOTE | 2022-04-21 14:45 | PCM.DC ---
Discharge Instructions Diet Discharge Diet: No restrictions Activity Discharge Activity: Return to Normal Activity and May Not Drive (while taking narcotic pain medications.) Dressing / Incision Call your doctor if you observe: Fever of 101 or Higher Additional Dressing/Incision Instructions:: Change dressing twice a day with half inch packing strip. Follow Up Care Please Follow Up With: Arturo Miranda MD When: Call [phone] for an appointment Test Results: Test results from this visit will be discussed in further detail at your follow-up appointment, if applicable. Discharge Plan Admission Primary Reason for Your Visit: scrotal infection Attending Provider: Arturo Miranda Primary Care Provider: Ryan Sheridan Instructions Patient Instructions: Changing Dressing Dc Additional Instructions / Restrictions: needs to remove dressing tomorrow in am then pack wound lightly with 1\2 packing strip twice a day till its healed. Discharge Orders/Prescriptions Prescriptions: New ciprofloxacin HCl [Cipro] 500 mg tablet 500 mg PO BID Qty: 14 RF: 0 Continued atorvastatin 20 mg tablet 20 mg PO QHS Qty: 90 RF: 3 carvedilol 12.5 mg tablet 12.5 mg PO BIDCM Qty: 180 RF: 3 digoxin 250 mcg (0.25 mg) tablet 250 mcg PO DAILY Qty: 90 RF: 3 isosorbide mononitrate 30 mg tablet extended release 24 hr 30 mg PO DAILY Qty: 90 RF: 3 Entresto 49-51 mg tablet 1 tab PO BID Qty: 180 RF: 3 nitroglycerin 0.4 MG tablet, sublingual 0.4 mg SL Q5M PRN (Reason: Cardiac/Chest Pain) Qty: 30 RF: 0 ciprofloxacin HCl 500 mg tablet 500 mg PO BID RF: 0 hydrocodone-acetaminophen 1 TABLET tablet 1 tab PO Q6H PRN PRN (Reason: Pain) 3 Days Qty: 10 RF: 0 Held apixaban 2.5 mg tablet 2.5 mg PO DAILY Qty: 90 RF: 11 Hold Instructions: Resume on 04/28/22. Referrals / Follow Up: Arturo Miranda MD [STAFF PHYSICIAN] - Ryan Sheridan MD [Primary Care Provider] - Disposition Disposition (needs filled in before D/C Order can be placed): Home, Self Care
--- NOTE | 2022-04-21 14:45 | PCM.OPRPT ---
Report of Operation Date of Procedure: 04/21/22 Pre-Operative Diagnosis: Scrotal abscess Post-Operative Diagnosis: Abscess Surgery/Procedure Performed:: Incision and drainage of scrotal abscess Description of Surgical Findings:: This is a 42-year-old male who comes in to the operating room he has a infected scrotal abscess in the scrotum. We took him back to the operating room after smooth induction of anesthesia there was an area of the inflamed scrotal abscess in the patient's right lateral hemiscrotum I made an incision and drained out pus and then made sure that all the areas were connected there was no loculations irrigated out the area copiously and then packed the abscess with Kerlix and new gauze and then fluffs and dressings were placed. Patient's anesthetic was reversed taken back to PACU good condition he will follow-up in 2 weeks for checkup his was instructed to do dressing changes at home. Surgeon: murtaza Type of Anesthesia: General Admit VTE Documentation VTE Present on Admission: No VTE Mechan Device Prophylaxis: SCD's VTE Pharm Prophylaxis ordered?: No
[2022-04-21] MEDS: Ketorolac 15 MG/ML Vial IV (15:20)
[2022-04-21] MEDS: HYDROcodone Bitartrate/Apap 5/325 Tablet PO (16:08)
== END 2022-04-21 17:01 | disposition home or self-care (01) ==
LOC: SDC 12:05 → AC 12:08
PROVIDERS: PCP Family Medicine; Referring Provider Urology; Visit Provider Urology
PROC: (CPT 54840; principal; 2022-04-21 14:15)
DX: N43.40 Spermatocele of epididymis, unspecified (principal); I11.0 Hypertensive heart disease with heart failure; I50.9 Heart failure, unspecified; I48.91 Unspecified atrial fibrillation; Z79.82 Long term (current) use of aspirin; E78.00 Pure hypercholesterolemia, unspecified; Z87.891 Personal history of nicotine dependence; G47.33 Obstructive sleep apnea (adult) (pediatric); Z99.89 Dependence on other enabling machines and devices
CPT/HCPCS: 54700; 00920; J7120; J2405

== ENCOUNTER → 2022-08-19 | Outpatient (CLI) | payer BC, SELFPAY ==
[2022-08-19 16:22] LABS: Absolute Lymphocyte Count 2.42 X10^3/uL (0.83-4.51); Absolute Neutrophil Count 6.7 X10^3/uL (2.0-7.7); Basophil# 0.04 X10^3/uL; Basophil% 0.4 % (0-1); Eosinophil# 0.18 X10^3/uL; Eosinophils% 1.8 % (0-5); Hematocrit 49.4 % (40-54); Hemoglobin 16.5 g/dL (13.0-16.5); Lymphocyte # 2.42 X10^3/ul (0.83-4.51); Lymphocyte % 23.9 % (19-41); Mean Corp Hgb Conc 33.4 g/dL (32-36); Mean Corpuscular Volume 86.8 fL (80-94); Monocyte# 0.78 X10^3/uL; Monocyte% 7.7 % (0-10); NRBC Flagged by Analyzer 0 % (0-5); Neutrophil # 6.69 X10^3/uL (2.7-7.7); Neutrophil % 65.9 % (47-70); Platelet Count 264 K/mm3 (150-450); RBC Distribution Width CV 13.2 % (11.6-14.6); RBC Distribution Width SD 41.6 fl (35.1-43.9); Red Blood Count 5.69 M/mm3 (4.6-6.2); White Blood Count 10.1 K/mm3 (4.4-11.0)
[2022-08-19 16:36] LABS: Anion Gap 6 (5-15); BUN 10 mg/dL (7-18); BUN/Creat Ratio 9.7 RATIO (10-20); Calcium,Total 9.1 mg/dL (8.5-10.1); Chloride 104 mmol/L (98-107); Creatinine, Serum 1.03 mg/dL (0.70-1.30); EST Glomerular Filtration Rate 84 mL/min (>60); Est Glom Filt Rate - Afr Amer 101 mL/min (>60); Glucose 88 mg/dL (74-106); Potassium 3.8 mmol/L (3.5-5.1); Sodium Level 139 mmol/L (136-145)
== END | disposition home or self-care (01) ==
LOC: LAB 15:48
PROVIDERS: Referring Provider Nurse Practitioner Family; Visit Provider Nurse Practitioner Family
DX: I48.0 Paroxysmal atrial fibrillation (principal); I10 Essential (primary) hypertension
CPT/HCPCS: 36415; 80048; 85025

== ENCOUNTER 2022-09-14 10:52 | Day surgery (SDC) | payer BC, SELFPAY ==
[2022-09-13 08:09] VITALS: BMI 35.6
--- NOTE | 2022-09-13 18:04 | HP.PCM_ITS ---
History and Physical Date of Admission: 09/14/22 [facility] [address] [place] [address] Name:SELENA STRONG : 1980 Age/Sex:? 42/M HPI HPI History of Present Illness Surgical H&P: Yes Details: This is a 42-year-old male presents the office today for a cardiovascular outp atient follow-up.? He has a history of atrial fibrillation, nonischemic congestive heart failure, hypertension, and obstructive sleep apnea. Patient was admitted to [facility] in February 2021 for worsening shortness of breath.? In the emergency department, he was noted to be in atrial fibrillation and noted symptoms of congestive heart failure.? He received IV diltiazem and IV diuretic therapy.? He underwent echocardiogram on 02/17/2021 that showed an ejection fraction of 20% and moderate enlarged left atrium.? He had mild mitral valve insufficiency and an RVSP of 36 mmHg.? He proceeded with a heart catheterization on 02/19/2021 that showed ejection fraction 20% and angiographically normal coronary arteries.? He was started on rate limiting medication, CHF medication, and anticoagulation and discharged for outpatient follow-up. He underwent cardioversion on 03/31/2021 at both 200 and 300 J that resulted in atrial fibrillation.? He is referred to Dr. Lazo, retail grocer at [facility]. He underwent unsuccessful cardioversion with EP. The plan is to lifestyle changes and ELLA management and re-attempt cardioversion before antiarrhythmic or ablation procedure. He denies chest, arm, jaw, or neck discomfort. He denies symptoms of shortness of breath with exertion, shortness of breath at rest, orthopnea, PND, sudden weight gain, or bilateral lower extremity edema. He denies chronic cough. He denies palpitations, lightheadedness, dizziness, near syncope, or syncopal episodes. He denies claudication issues. He denies fever or chills. He denies blood in urine, blood in stool, or epistaxis. He denies myalgia. He denies unexplainable fatigue. His exercise tolerance is stable. Intake Vital Signs ? 08/19/2214:59 08/19/2215:09 Height 5 ft 11 in 5 ft 11 in Weight: 256 lb ? BMI 35.6 ? BP 129/87 H ? Blood Pressure Location Lt brachial ? Position Sitting ? Respiration 16 ? Pulse 85 ? Pulse Source Auscultation ? Intake Visit Reasons:?4 WK FU Emergency Management Specialist Required: No Accompanied by: Is patient in pain?: No Allergies aspirin Allergy (Verified 08/19/22 15:03) Shortness of breathPenicillins Allergy (Verified 08/19/22 15:03) AnaphylaxisSulfa (Sulfonamide Antibiotics) Allergy (Verified 08/19/22 15:03) PT UNSURE OF REACTIONoxycodone Adverse Reaction (Verified 08/19/22 15:03) Vomiting Medications nitroglycerin 0.4 mg sublingual tablet 0.4 mg sublingual Q5M PRN Cardiac/Chest Pain ##30 02/21/21 [Rx Confirmed 08/19/22] carvedilol 12.5 mg tablet 12.5 mg PO BIDCM #180 tabs 01/12/22 [Rx Confirmed 08/19/22] digoxin 250 mcg (0.25 mg) tablet 250 mcg PO DAILY #90 tabs 01/12/22 [Rx Confirmed 08/19/22] atorvastatin 20 mg tablet 20 mg PO QHS #90 tabs 05/05/22 [Rx Confirmed 08/19/22] sacubitril 49 mg-valsartan 51 mg tablet (Entresto) 1 tab PO BID #180 tabs 06/22/22 [Rx Confirmed 08/19/22] apixaban 5 mg tablet (Eliquis) 5 mg PO BID #60 tabs 07/22/22 [Rx Confirmed 08/19/22] isosorbide mononitrate 30 mg tablet,extended release 24 hr 30 mg PO BID 07/22/22 [History Confirmed 08/19/22] Ejection fraction %: 55 to 59 PFSH Medical History? Atrial fibrillation with RVR Cardiology follow-up encounter CHF (congestive heart failure) CPAP (continuous positive airway pressure) dependence Former smoker High cholesterol History of cardioversion History of echocardiogram HTN (hypertension) Hypertension Surgical History? History of left heart catheterization (LHC) (~02/19/21) History of tonsillectomy Family History? Grandfather Myocardial infarctionGrandfather Cancer ?? ? Pancreatic Social History? other:? 1998 Smoking Status:? Former smoker alcohol intake:? never substance use type:? does not use caffeine:? No ROS Const Const: Negative for fatigue, weakness, body ache, fever(s) or chills ENT ENT: Negative for dizziness or Nosebleed/epistaxis Cardio Chest Pain: No Palpitations: No Edema: None Muscle aches with walking: None Resp Respiratory: Negative for SOB with activity, SOB at rest, SOB orthopnea\SOB lying down, Cough or paroxysmal nocturnal dyspnea GI GI: Negative nausea, vomiting blood/hematemesis, bright, red blood in stools or black,tarry stools : Negative for hematuria or frequent nighttime urination/ nocturia Musc Musc: Negative for muscle aches/ myalgia Skin Skin: Negative non-healing lesions or rash Neuro Neuro: Negative for dizziness, lightheadedness, near syncope, syncope, orthostatic symptoms or weakness Endo Endo: Negative for fatigue Allergy Allergy/Immunology: Negative for rash Cardiology Exam Const Appearance: cooperative, healthy appearing, comfortable and no acute distress Nutritional Appearance: well nourished and obese Orientation: alert, awake and oriented x3 Head Head: normal to inspection Ears: hearing grossly normal bilaterally Nose: external nose normal Face and Sinus: face symmetric Mouth: oral mucosae normal Eyes General: appearance normal, both eyes and all related structures Eyelids: eyelids normal EOM: EOM intact bilaterally Neck Neck: normal visual inspection and no JVD Carotids: normal carotid upstroke Chest Chest inspection: normal inspection of the chest, symmetric chest movement and normal respiratory effort; Negative cough Auscultation: Bilateral: Clear to Auscultation Cardio Rate: regular rate Rhythm: irregular rhythm Heart sounds: S1 normal and S2 normal; Negative rub, gallop or murmur GI GI: normal to inspection and obese Neuro General: patient alert, patient awake, patient oriented x3 and CN's II-XI intact bilaterally Skin Skin: no rashes or lesions noted Extremities Pulses: Normal: Right Posterior Tibial Pulse, Left Posterior Tibial Pulse, Right Radial Pulse and Left Radial Pulse Lower Extremity Edema: None: Bilateral Psych Psychological: normal affect Supplemental Info Supplemental Information Echocardiogram 07/01/2021: Interpretation Summary Limited views were obtained. ? Left ventricular systolic function is normal. The estimated ejection fraction is 55 %. Mild concentric left ventricular hypertrophy. The left atrium is mildly enlarged. Borderline enlarged aortic root. Unable to assess diastolic dysfunction. Echocardiogram from 02/17/2021: Interpretation Summary The study was technically difficult. Contrast injection was performed. ? Moderately dilated left ventricle. Severe global left ventricular systolic dysfunction. The estimated ejection fraction is 20 %. Moderate concentric left ventricular hypertrophy. The left atrium is moderately enlarged. Mild papillary muscle dysfunction of the mitral valve. Mild (1+) eccentric mitral valve insufficiency. Mild tricuspid valve insufficiency. Trivial pulmonic valve insufficiency. Right ventricular systolic pressure estimated to be 36 mmHg. Unable to assess diastolic dysfunction. 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 RECOMMENDATIONS Risk factor modification Medical therapy Consider further evaluation of the origin of the RCA c/w the LCA with Cardiac CTA if clinically indicated. CORONARY ANGIOGRAPHY DOMINANCE:? Right Dominant LEFT HEART ASSESSMENT Left Ventricular Ejection Fraction: by LV Gram 20 % Global Hypokinesis - Severe Elevated Left Ventricular End Diastolic Pressure LVEDP: 34 mmHg LEFT MAIN: Angiographically normal LEFT ANTERIOR DESCENDING ARTERY: Angiographically normal CIRCUMFLEX ARTERY: Angiographically normal RIGHT CORONARY ARTERY: Angiographically normal AORTIC ROOT: Angiographically normal COMPLICATIONS No Complications Labs: ?? ? No Data to Display Diagnostics: ?? ? Electrocardiogram ? Echocardiogram ? Pulmonary: ?? ? No Data to Display Assessment and Plan Assessment and Plan (1) Paroxysmal atrial fibrillation: ?Status:?Acute ?Comment: DCCV on 03/31/2001 at [facility]; DCCV on 04/27/2021 at [facility]; ?Plan: His most recent echocardiogram in June 2021 showed ejection fraction 55%, mild concentric LVH, and mildly enlarged left atrium. His EKG on 08/19/2022 showed atrial fibrillation at a rate of 81 bpm.? He appears to be tolerating ELLA treatment well. His heart catheterization in February 2021 showed angiographically normal coronary arteries. Thus, this may guide future antiarrhythmic therapy if indicated. Long-term, we can consider ablation work-up. As he continues to remain in atrial fibrillation, we will proceed with cardioversion.? He has maintained anticoagulation without interruption for the last 4 weeks.? He has not had any obvious signs of bleeding.? He will undergo a CBC to ensure that his blood count is stable.? He will also undergo a BMP to guide cardioversion.? Depending on response, further recommendation will be made. (2) CHF (congestive heart failure): ?Status:?Chronic ?Qualifiers: ?Heart failure chronicity:?unspecified??Heart failure type:?unspecified? Qualified Code(s):?I50.9 - Heart failure, unspecified ?Comment: RESOLVED ?Plan: His most recent echocardiogram showed an ejection fraction of 55%. He appears to be in a euvolemic state on exam. He will continue current medical therapy with Coreg, digoxin, isosorbide, and Entresto. (3) HTN (hypertension): ?Status:?Chronic ?Qualifiers: ?Hypertension type:?unspecified? Qualified Code(s):?I10 - Essential (primary) hypertension ?Plan: Patient's blood pressure is well-controlled.? We will continue to monitor. We will not make any medication regimen changes. (4) ELLA (obstructive sleep apnea): ?Status:?Chronic ?Plan: He will continue with ELLA management. He was reminded of the importance of such to control atrial fibrillation. ? ? ? Orders: Orders 12 Lead EKG performed by [facility] 08/19/22 I48.0 - Paroxysm al atrial fibrillation, Z01.810 - Encounter for preprocedural cardiovascular examination ? Basic Metabolic Profile (BMP) 08/19/22 I10 - Essential (primary) hyper tension, I48.0 - Paroxysmal atrial fibrillation ? CBC W/Diff, Automated 08/19/22J I10 - Essential (primary) hype rtension, I48.0 - Paroxysmal atrial fibrillation ? Plan Details Additional Comments: Thank you for allowing us to participate in the patients plan of care, if you have any questions please do not hesitate to call. This note was generated using a voice recognition system and there may be incorrect words, spelling or punctuation that were not noted when reviewing the office note prior to saving. Portions of this documentation were copied and pasted from previous office visit notes to provide a cohesive continuity of the history. The note has been reviewed, edited, and updated, as necessary. Follow Up: ? ? Keep as is (PFM) COVID (Procedure Consent) Procedure Criteria Procedure Criteria: Yes Elective The surgeon/proceduralist and patient have discussed in detail the risk of exposure to and/or potential harm posed by the COVID-19 virus with having a surgery/procedure at this time versus the risk of? delaying the surgery/procedure. It is not possible to know either the risk of delaying the surgery or procedure or chance of getting an infection with perfect accuracy, but a joint decision was made between the patient and the surgeon/proceduralist ?to proceed at this time with the scheduled surgery/procedure as indicated on the consent form. Coding Level of Care Code Off vis,est,level 4 Diagnoses Paroxysmal atrial fibrillation? I48.0 CHF (congestive heart failure)? I50.9 ? ? ? Heart failure chronicity: unspecified ? ? ? Heart failure type: unspecified HTN (hypertension)? I10 ? ? ? Hypertension type: unspecified ELLA (obstructive sleep apnea)? G47.33 Coding Level of Care Code Off vis,est,level 4 Diagnoses Paroxysmal atrial fibrillation? I48.0 CHF (congestive heart failure)? I50.9 ? ? ? Heart failure chronicity: unspecified ? ? ? Heart failure type: unspecified HTN (hypertension)? I10 ? ? ? Hypertension type: unspecified ELLA (obstructive sleep apnea)? G47.33 CC: ? ~ Assessment & Plan Addt'l Comments I have examined the patient and the H&P has been reviewed. There are no clinical changes since date of exam. This note was generated using a voice recognition system and there may be incorrect words, spelling or punctuation that were not noted when reviewing the office note prior to saving.
--- NOTE | 2022-09-14 13:37 | PCM.OP.PRO ---
Procedure Report Date of Procedure: 09/14/22 CONSCIOUS SEDATION REPORT DATE OF SERVICE: September 14, 2022 BRIEF HISTORY OF PRESENT ILLNESS: The patient is a 42-year-old male who presented to [facility] for an elective outpatient cardioversion due to underlying atrial fibrillation. The patient did undergo a prior cardioversion in March 2021. The patient denied any prior anesthetic complications. His last echocardiogram demonstrated an ejection fraction of approximately 20%. He is currently anticoagulated on Eliquis. He does have a known history of obstructive sleep apnea and is currently prescribed nocturnal Pap therapy. PHYSICAL EXAMINATION: VITAL SIGNS: Reviewed and were acceptable. GENERAL: The patient is a male, in no apparent distress, speaking in full sentences. HEENT: Normocephalic, atraumatic. Mucous membranes are moist and pink. Good mouth opening noted. Trachea is midline. Good neck mobility. CHEST: S1, S2 irregularly irregular. No murmurs, rubs or gallops were noted. LUNGS: Clear to auscultation bilaterally without appreciable wheezes, rales or rhonchi. ABDOMEN: Soft, nontender, nondistended. Positive bowel sounds. EXTREMITIES: There is no clubbing, cyanosis or edema. ASA Class: II DESCRIPTION OF PROCEDURE: After confirmation of informed consent, the patient's anesthesia plan was reviewed in detail. Etomidate was chosen. Risks and benefits were reviewed and the patient agreed to proceed. At 1250, the patient was given his first bolus of etomidate. In total, throughout the entire procedure, the patient required 16 mg of etomidate to facilitate 3 separate attempts at cardioversion, the first at 200 J, the second at 300 J and the third at 360 J. Unfortunately, none of the aforementioned was successful in restoring normal sinus rhythm. The patient was monitored until 1305, at which time he reached his baseline mental status and function. The patient tolerated the procedure well. COMPLICATIONS: None ESTIMATED BLOOD LOSS: None RECOMMENDATIONS: Okay to recover in usual fashion. Procedures Pulmonary 9xxxx: [id number] Con Sedation
--- NOTE | 2022-09-14 14:44 | CARDIOVERS ---
Cardioversion Cardioversion: Date: 09-14-2022 Procedure: Synchronized Biphasic DC Cardioversion Indications: Atrial fibrillation Consent: Per the Patient Anesthesia: per Dr. Barron of pulmonology and critical care medicine with etomidate 16 mg IV push total Procedure: Synchronized Biphasic DC Cardioversion: 200 J x 1: Result: Atrial fibrillation Synchronized Biphasic DC cardioversion: 300 J x 1: Result: Sinus rhythm with subsequent return to atrial fibrillation Synchronized Biphasic DC cardioversion: 360 J x 1: Result: Sinus rhythm with subsequent return to atrial fibrillation Complications: no apparent complications This note was generated with [employer] software. It may contain incorrect words, spelling, and punctuation that were not noted in checking the note before signing.
== END 2022-09-14 14:00 | disposition home or self-care (01) ==
LOC: CLSP 10:55
PROVIDERS: PCP Family Medicine; Referring Provider Internal Medicine Cardiovascular Disease; Visit Provider Internal Medicine Cardiovascular Disease
DX: I48.0 Paroxysmal atrial fibrillation (principal); I11.0 Hypertensive heart disease with heart failure; I50.9 Heart failure, unspecified; Z87.891 Personal history of nicotine dependence; I34.0 Nonrheumatic mitral (valve) insufficiency; G47.33 Obstructive sleep apnea (adult) (pediatric)
CPT/HCPCS: 92960; 93005; J7040

== ENCOUNTER → 2023-04-27 | Outpatient (CLI) | payer OTHER, SELFPAY ==
[2023-04-27 07:31] LABS: ALB/GLOB Ratio 1.2 RATIO (0.9-2.4); AST(SGOT) 19 U/L (15-37); Alanine Aminotransfer ALT/SGPT 25 U/L (16-61); Albumin, Serum 3.9 g/dL (3.2-5.0); Alkaline Phosphatase 86 U/L (45-117); Anion Gap 3 (5-15); BUN 15 mg/dL (7-18); BUN/Creat Ratio 13.3 RATIO (10-20); Bilirubin, Direct 0.13 mg/dL (0.00-0.30); Calcium,Total 9.1 mg/dL (8.5-10.1); Chloride 106 mmol/L (98-107); Creatinine, Serum 1.13 mg/dL (0.70-1.30); EST Glomerular Filtration Rate 75 mL/min (>60); Est Glom Filt Rate - Afr Amer 91 mL/min (>60); Globulin 3.2 g/dL (2.2-4.2); Glucose 90 mg/dL (74-106); Potassium 4.3 mmol/L (3.5-5.1); Protein, Total 7.1 g/dL (6.4-8.2); Sodium Level 139 mmol/L (136-145)
== END | disposition home or self-care (01) ==
LOC: LAB 06:09
PROVIDERS: PCP Family Medicine; Referring Provider Nurse Practitioner Family; Visit Provider Nurse Practitioner Family
DX: I48.0 Paroxysmal atrial fibrillation (principal); I50.9 Heart failure, unspecified
CPT/HCPCS: 36415; 80053; 82248

== ENCOUNTER → 2023-05-10 | Outpatient (CLI) | payer OTHER, SELFPAY ==
[2023-05-10 18:35] LABS: AST(SGOT) 19 U/L (15-37); Alanine Aminotransfer ALT/SGPT 23 U/L (16-61); Albumin, Serum 3.9 g/dL (3.2-5.0); Alkaline Phosphatase 92 U/L (45-117); Bilirubin, Direct 0.12 mg/dL (0.00-0.30); Protein, Total 6.9 g/dL (6.4-8.2)
[2023-05-12 16:09] LABS: QNTFERON TB Mitogen Value > 10.00 IU/mL (.); QNTFERON TB Nil Value 0.02 IU/mL (.); QNTFERON TB1+ Ag Value 0.07 IU/mL (.); QNTFERON TB2+ Ag Value 0.09 IU/mL (.); QNTIFERON TB Positive Criteria Negative (Negative)
== END | disposition home or self-care (01) ==
LOC: MTLAB 15:52
PROVIDERS: PCP Family Medicine; Referring Provider Physician Assistant Medical; Visit Provider Physician Assistant Medical
DX: L73.2 Hidradenitis suppurativa (principal); L90.5 Scar conditions and fibrosis of skin; L60.3 Nail dystrophy
CPT/HCPCS: 36415; 80076; 86480

== ENCOUNTER 2023-05-26 15:57 | Outpatient (CLI) | payer OTHER, SELFPAY ==
[2023-05-26 17:39] LABS: Absolute Lymphocyte Count 2.63 X10^3/uL (0.83-4.51); Absolute Neutrophil Count 9.4 X10^3/uL (2.0-7.7); Basophil# 0.05 X10^3/uL; Basophil% 0.4 % (0-1); Eosinophil# 0.17 X10^3/uL; Eosinophils% 1.3 % (0-5); Hematocrit 49.6 % (40-54); Hemoglobin 16.6 g/dL (13.0-16.5); Lymphocyte # 2.63 X10^3/ul (0.83-4.51); Mean Corp Hgb Conc 33.5 g/dL (32-36); Mean Corpuscular Hgb 29.6 pg (27.0-32.0); Mean Corpuscular Volume 88.6 fL (80-94); Mean Platelet Vol. 10.1 fl (6.2-12.0); Monocyte# 0.86 X10^3/uL; Monocyte% 6.6 % (0-10); NRBC Flagged by Analyzer 0 % (0-5); Neutrophil # 9.37 X10^3/uL (2.7-7.7); Neutrophil % 71.4 % (47-70); Platelet Count 256 K/mm3 (150-450); RBC Distribution Width CV 12.9 % (11.6-14.6); RBC Distribution Width SD 42.1 fl (35.1-43.9); White Blood Count 13.1 K/mm3 (4.4-11.0)
[2023-05-26 18:17] LABS: Cholesterol 113 mg/dL (200); High Density Lipoprotein 33 mg/dL; Thyroid Stim Hormone (TSH) 2.57 uIU/mL (0.358-3.74); Triglycerides 160 mg/dL; Very Low Density Lipoprotein 32 mg/dL (5-40)
[2023-05-26 18:41] LABS: Hemoglobin A1c 5.4 % (3.8-5.6)
== END 2023-05-26 23:59 | disposition home or self-care (01) ==
LOC: MFPLAB 15:58
PROVIDERS: PCP Family Medicine; Visit Provider Family Medicine
DX: I48.91 Unspecified atrial fibrillation (principal)
CPT/HCPCS: 36415; 80061; 83036; 84443; 85025

== ENCOUNTER → 2023-06-01 | Outpatient (CLI) | payer OTHER, SELFPAY ==
[2023-06-01 15:43] LABS: Absolute Lymphocyte Count 2.36 X10^3/uL (0.83-4.51); Absolute Neutrophil Count 8.6 X10^3/uL (2.0-7.7); Basophil# 0.05 X10^3/uL; Basophil% 0.4 % (0-1); Eosinophil# 0.13 X10^3/uL; Eosinophils% 1.1 % (0-5); Hematocrit 50.7 % (40-54); Hemoglobin 17.2 g/dL (13.0-16.5); Lymphocyte # 2.36 X10^3/ul (0.83-4.51); Lymphocyte % 19.9 % (19-41); Mean Corp Hgb Conc 33.9 g/dL (32-36); Mean Corpuscular Hgb 29.6 pg (27.0-32.0); Mean Corpuscular Volume 87.3 fL (80-94); Mean Platelet Vol. 10.3 fl (6.2-12.0); Monocyte# 0.75 X10^3/uL; Monocyte% 6.3 % (0-10); NRBC Flagged by Analyzer 0 % (0-5); Neutrophil # 8.55 X10^3/uL (2.7-7.7); Platelet Count 284 K/mm3 (150-450); RBC Distribution Width CV 12.9 % (11.6-14.6); RBC Distribution Width SD 40.9 fl (35.1-43.9); Red Blood Count 5.81 M/mm3 (4.6-6.2); White Blood Count 11.9 K/mm3 (4.4-11.0)
== END | disposition home or self-care (01) ==
LOC: MTLAB 11:18
PROVIDERS: PCP Family Medicine; Referring Provider Family Medicine; Visit Provider Family Medicine
DX: I48.91 Unspecified atrial fibrillation (principal)
CPT/HCPCS: 36415; 85025